=== PATIENT | male | born 1945 | race Caucasian/White ===

== ENCOUNTER 2017-04-13 08:24 | Inpatient (IN) | payer OTHER ==
[~2017-04-13] VITALS: Ht 170.2 cm; Wt 85.7 kg
[~2017-04-13 08:24] MED LIST: ASCO10003 PO; ASPI81TA28 PO; CALC-214 PO; CHOL100010 PO; FINA5TAB PO; FLEC50TA20 PO; OMEG10007 PO; SIMV20TA2 PO; TERA5CAP PO; VITBC PO
--- NOTE | 2017-04-13 09:07 | EMERGENCY ROOM VISIT NOTE ---
History Report prepared by Frandy: Rio Payton Under the Supervision of: Dr. Jose Espinosa M.D. First contact with patient: 08:59 Chief Complaint: IRREGULAR HEARTBEAT Stated Complaint: IRREGULAR HEARTBEAT & PULSE Nursing Triage Summary: "I got up this morning and it felt like I had to have a bowel movement and urinate. I was able to do that then my heart didnt feel like it was beating right." hx of afib and jason parkinson white syndrome. patient denies chest pain or sob at this time. History of Present Illness The patient is a 72 year old male with a history of atrial fibrillation and WPW who presents to the Emergency Room with complaints of a persistent irregular heartbeat around 3 hours ago. Per the nursing staff, the patient felt like he had to have a bowel movement this morning and urinate, and after he did so, he felt that his heart rate was irregular. The patient says that he took 100 mg of his Flecainide instead of his usual 70 mg around 2 and a half hours ago. He states that he knew there was something wrong, and feels weak as well. He notes that he has been having some abdominal pain. The patient denies any chest pain. He states that he takes a baby Aspirin daily. Currently, the patient says that he is still having the abdominal discomfort. Source of History: patient, nursing staff Onset: Around 3 hours ago Position: other (heart) Quality: other (irregular heartbeat) Timing: other (persistent) Associated Symptoms: + abdominal pain, + numbness, No chest pain Note: Associated symptoms: Feels the irregular heartbeat. Review of Systems All systems have been listed, reviewed, and are negative other than those previously mentioned. Please see Additional Medical History Sheet. Past Medical & Surgical Medical Problems: (1) Afib (2) V tach (3) WPW (Wihxp-Qsrxqkeon-Rpzhj syndrome) Family History Family history omitted secondary to patient's advanced age. Social History Smoking Status: Never Smoker Marital Status: Housing Status: lives with family Occupation Status: retired Current/Historical Medications Scheduled Ascorbic Acid (Vitamin C), 1 TAB PO DAILY Aspirin (Aspirin Ec), 81 MG PO DAILY Cholecalciferol (Vitamin D3), 1,000 UNITS PO DAILY Finasteride (Proscar), 5 MG PO DAILY Flecainide (Tambocor), 75 MG PO BID Simvastatin (Zocor), 20 MG PO QPM Terazosin (Hytrin), 5 MG PO HS Vitamin B Complex (Vitamin B Complex), 1 TAB PO DAILY Miscellaneous Medications Fish Oil ([place]-3), 1 CAP PO Allergies Coded Allergies: Penicillins (Verified Allergy, Unknown, `, 01/24/13) Physical Exam Vital Signs Date Time Temp Pulse Resp B/P (MAP) Pulse Ox O2 Delivery O2 Flow Rate FiO2 04/13/17 10:30 95 133/78 04/13/17 09:55 91 18 113/78 04/13/17 09:52 81 04/13/17 09:31 105 18 127/78 04/13/17 09:15 99 Nasal Cannula 2.0 04/13/17 09:13 199 04/13/17 09:03 162 04/13/17 08:49 96 Room Air 04/13/17 08:49 96 Room Air 04/13/17 08:31 36.3 100 20 158/80 97 Room Air Physical Exam GENERAL: Patient awake, alert, oriented x 3. Patient follows commands. Patient does not appear toxic. Patient is adequately hydrated and well- nourished. SKIN: No erythema, pallor, cyanosis or rash HEENT: Normal head, pupils equal, reactive to light and accommodation. Oral cavity and posterior pharynx appear normal. Neck: Without adenopathy, no neck vein distention. Carotids are strong and equal. LUNGS: Clear to auscultation. No wheezes, no rales, no rhonchi. HEART: Irregularly irregular rate. No murmurs. No gallops. No rubs ABDOMEN: No masses, no rebound, no hepatomegaly or splenomegaly. EXTREMITIES: No signs of trauma. No pedal or pretibial edema. No calf or thigh tenderness. NEUROLOGIC: Cranial nerves II-XII within normal limits. No gross motor sensory function deficits. Medical Decision & Procedures ER Provider Diagnostic Interpretation: X ray results are stated below per my interpretation and the radiologist's interpretation. CHEST ONE VIEW PORTABLE CLINICAL HISTORY: v tach cardiac arrhythmia COMPARISON STUDY: No previous studies for comparison. FINDINGS: The bones soft tissues and hemidiaphragms are normal. The cardiomediastinal silhouette is normal. The lungs are clear. The pulmonary vasculature is normal. IMPRESSION: Negative chest. The above report was generated using voice recognition software. It may contain grammatical, syntax or spelling errors. Electronically signed by: Guanako Richardson M.D. 04/13/2017 9:46 AM Dictated Date/Time: 04/13/2017 9:46 AM Laboratory Results 04/13/17 08:44 Red Blood Count 5.01, Mean Corpuscular Volume 92.2, Mean Corpuscular Hemoglobin 32.5, Mean Corpuscular Hemoglobin Concent 35.3, Mean Platelet Volume 9.9, Neutrophils (%) (Auto) 62.5, Lymphocytes (%) (Auto) 23.9, Monocytes (%) (Auto) 8.5, Eosinophils (%) (Auto) 4.1, Basophils (%) (Auto) 0.8, Neutrophils # (Auto) 3.08, Lymphocytes # (Auto) 1.18, Monocytes # (Auto) 0.42, Eosinophils # (Auto) 0.20, Basophils # (Auto) 0.04 04/13/17 08:44 Test 04/13/17 08:44 04/13/17 09:34 04/13/17 10:30 White Blood Count 4.93 K/uL (4.8-10.8) Red Blood Count 5.01 M/uL (4.7-6.1) Hemoglobin 16.3 g/dL (14.0-18.0) Hematocrit 46.2 % (42-52) Mean Corpuscular Volume 92.2 fL (80-100) Mean Corpuscular Hemoglobin 32.5 pg (25-34) Mean Corpuscular Hemoglobin Concent 35.3 g/dl (32-36) Platelet Count 217 K/uL (130-400) Mean Platelet Volume 9.9 fL (7.4-10.4) Neutrophils (%) (Auto) 62.5 % Lymphocytes (%) (Auto) 23.9 % Monocytes (%) (Auto) 8.5 % Eosinophils (%) (Auto) 4.1 % Basophils (%) (Auto) 0.8 % Neutrophils # (Auto) 3.08 K/uL (1.4-6.5) Lymphocytes # (Auto) 1.18 K/uL (1.2-3.4) Monocytes # (Auto) 0.42 K/uL (0.11-0.59) Eosinophils # (Auto) 0.20 K/uL (0-0.5) Basophils # (Auto) 0.04 K/uL (0-0.2) RDW Standard Deviation 41.3 fL (36.4-46.3) RDW Coefficient of Variation 12.2 % (11.5-14.5) Immature Granulocyte % (Auto) 0.2 % Immature Granulocyte # (Auto) 0.01 K/uL (0.00-0.02) Anion Gap 8.0 mmol/L (3-11) Est Creatinine Clear Calc Drug Dose 67.2 ml/min Estimated GFR () 80.9 Estimated GFR (Non- 69.8 BUN/Creatinine Ratio 20.5 (10-20) Calcium Level 9.0 mg/dl (8.5-10.1) Total Bilirubin 0.4 mg/dl (0.2-1) Aspartate Amino Transf (AST/SGOT) 26 U/L (15-37) Alanine Aminotransferase (ALT/SGPT) 31 U/L (12-78) Alkaline Phosphatase 73 U/L (45-117) Creatine Kinase MB 3.0 ng/ml (0.5-3.6) Troponin I < 0.015 ng/ml (0-0.045) Total Protein 7.3 gm/dl (6.4-8.2) Albumin 3.8 gm/dl (3.4-5.0) Globulin 3.5 gm/dl (2.5-4.0) Albumin/Globulin Ratio 1.1 (0.9-2) Chemistry Specimen Hemolysis Prothrombin Time 10.0 SECONDS (9.0-12.0) Prothromb Time International Ratio 1.0 (0.9-1.1) Activated Partial Thromboplast Time 26.1 SECONDS (21.0-31.0) Partial Thromboplastin Ratio 1.0 Urine Color YELLOW Urine Appearance CLEAR (CLEAR) Urine pH 7.5 (4.5-7.5) Urine Specific [place] 1.019 (1.000-1.030) Urine Protein NEG (NEG) Urine Glucose (UA) NEG (NEG) Urine Ketones NEG (NEG) Urine Occult Blood NEG (NEG) Urine Nitrite NEG (NEG) Urine Bilirubin NEG (NEG) Urine Urobilinogen NEG (NEG) Urine Leukocyte Esterase NEG (NEG) Laboratory results as stated above per my review. ECG Indication: palpitations Rate (beats per minute): 100 Rhythm: atrial flutter (with variable block) Findings: PVC (multiple), other (no acute ST changes) Comparison ECG Date: no prior available ED Course 0900: Past medical records reviewed. The patient was evaluated in room A9B. A complete history and physical examination was performed. 0948: I reevaluated the patient and he is feeling about the same. He is definitely in atrial flutter now. 1020: I discussed the patient with Dr. Anna Dejesus cardiology. 1027: Upon reevaluation, the patient is resting. I discussed today's findings with him. He verbalized agreement of the treatment plan. The patient will be evaluated for further treatment. 1030: Discussed the patient's case with Caroline Dejesus. The patient will be evaluated for further management. Medical Decision I considered multiple diagnoses including v-tach, history of WPW, metabolic disorder. The patient is here with atrial flutter with with multiple episodes of V. tach. The patient feels slightly weak but no pain. Multiple labs, EKG and imaging were obtained. Please see above. Troponin is not elevated. The patient is not anemic. I also consulted cardiology and medicine regarding this patient. I spoke with the patient and his . 2 IVs were started. Because the patient remained stable we did not intervene with emergent medications. The patient was reevaluated multiple times. Defibrillator pads were placed on the patient but no shock was administered. Medication Reconcilliation Current Medication List: was personally reviewed by me Blood Pressure Screening Patient's blood pressure: Normal blood pressure Consults Time Called: 1010 Consulting Physician: Dr. Anna Dejesus cardiology Returned Call: 1020 I discussed the patient with Dr. Anna Dejesus cardiology. Additional Consults: Time Called: 1028 Consulted Physician: Caroline Dejesus Returned Call: 1030 Additional Comments: Discussed the patient's case with Caroline Dejesus. The patient will be evaluated for further management. Impression Primary Impression: V-tach Additional Impression: Atrial flutter Critical Care I have personally spent greater than 35 minutes of critical care time in the direct management of this patient. This includes bedside care, interpretation of diagnostic studies, and testing, discussion with consultants, patient, and family members, and other required patient management activities. This 35 minutes is in excess of all separately billable procedures. Scribe Attestation The scribe's documentation has been prepared under my direction and personally reviewed by me in its entirety. I confirm that the note above accurately reflects all work, treatment, procedures, and medical decision making performed by me. Departure Information Dispostion Being Evaluated By Hospitalist Patient Instructions My [facility] Problem Qualifiers Additional Impression: Atrial flutter Atrial flutter type: unspecified Qualified Codes: I48.92 - Unspecified atrial flutter
[2017-04-13 09:25] LABS: BASO % 0.8 %; BASO ABS # 0.04 K/uL (0-0.2); EOS % 4.1 %; HEMATOCRIT 46.2 % (42-52); HEMOGLOBIN 16.3 g/dL (14.0-18.0); IG# 0.01 K/uL (0.00-0.02); LYMPH % 23.9 %; LYMPH ABS # 1.18 K/uL (1.2-3.4); MEAN CELL VOLUME 92.2 fL (80-100); MEAN CORPUSCULAR HEMOGLOBIN 32.5 pg (25-34); MEAN CORPUSCULAR HGB CONC 35.3 g/dl (32-36); MEAN PLATELET VOLUME 9.9 fL (7.4-10.4); MONO % 8.5 %; MONO ABS # 0.42 K/uL (0.11-0.59); NEUT % 62.5 %; NEUT ABS # 3.08 K/uL (1.4-6.5); PLATELET COUNT 217 K/uL (130-400); RED CELL DISTRIBUTION WIDTH CV 12.2 % (11.5-14.5); RED CELL DISTRIBUTION WIDTH SD 41.3 fL (36.4-46.3); WHITE BLOOD COUNT 4.93 K/uL (4.8-10.8)
[2017-04-13] MEDS ORDERED: CHOL1000 PO (09:25)
[2017-04-13 09:37] LABS: ALBUMIN 3.8 gm/dl (3.4-5.0); CREATININE 1.06 mg/dl (0.60-1.40); POTASSIUM 3.6 mmol/L (3.5-5.1)
[2017-04-13 09:39] LABS: TOTAL PROTEIN 7.3 gm/dl (6.4-8.2)
--- NOTE | 2017-04-13 09:48 | DIAGNOSTIC IMAGING REPORT ---
CHEST ONE VIEW PORTABLE CLINICAL HISTORY: v tach cardiac arrhythmia COMPARISON STUDY: No previous studies for comparison. FINDINGS: The bones soft tissues and hemidiaphragms are normal. The cardiomediastinal silhouette is normal. The lungs are clear. The pulmonary vasculature is normal. IMPRESSION: Negative chest. The above report was generated using voice recognition software. It may contain grammatical, syntax or spelling errors. Electronically signed by: Guanako Richardson M.D. 04/13/2017 9:46 AM Dictated Date/Time: 04/13/2017 9:46 AM
[2017-04-13 10:13] LABS: PTT PATIENT 26.1 SECONDS (21.0-31.0)
--- NOTE | 2017-04-13 10:48 | CARDIOLOGY CONSULTATION ---
DATE OF CONSULTATION: 04/13/2017 REFERRING PHYSICIAN: Oleg chruch. REASON FOR CONSULTATION: [id number]-Jfzqw. HISTORY OF PRESENT ILLNESS: This is a 72-year-old male patient who has had a diagnosis of Ulbgs-Mmxisvszu-Tstjr with paroxysmal atrial fibrillation since he was age 45. At that time, he was placed on flecainide and has taken 75 mg twice a day for 25 years. He has been stable on the flecainide obviously for many years. He was not feeling well this morning. He just felt lousy with some fatigue and some pressure in his lower pelvis. According to his , he is not somebody that usually complains. When he called her to come home from work to bring him to the hospital, she was very concerned. After arrival here on the telemetry, he has been having short burst of wide complex tachycardia from 5 to approximately 10 beats, which have been asymptomatic. He has had no recent syncope or presyncope. He denies chest pain or shortness of breath. He has not really had any symptoms of tachycardia for many years. He usually follows with Dr. Richardson through our cardiology office and according to his last note in November, things were going well. Also, he had an echocardiogram this past November that shows normal left and right ventricular systolic function and no valvular pathology. ALLERGIES: PENICILLIN. PAST MEDICAL HISTORY: As outlined above, the patient has a history of atrial arrhythmias with Pyadf-Vwadfvsiu-Yhcgx. He is treated for dyslipidemia. He also has a history of benign prostatic hypertrophy and is followed by urology. SOCIAL HISTORY: He lives with his . He is a never smoker. FAMILY MEDICAL HISTORY: Noncontributory. REVIEW OF SYSTEMS: A 10-point review of systems is otherwise negative. PHYSICAL EXAMINATION: GENERAL: He is alert and oriented, in no acute distress. VITAL SIGNS: Blood pressure is 110/80 and pulse is regular at 90 beats per minute. He is afebrile. HEENT: He is normocephalic. Pupils are equal and reactive to light. Extraocular muscles are intact bilaterally. NECK: The neck veins are flat. Carotids have good upstrokes bilaterally without bruits. Thyroid is nonpalpable. RESPIRATORY: Breath sounds equal bilaterally and clear to auscultation. CARDIOVASCULAR: Heart has a regular rhythm. Normal S1 and S2. No S3 or S4. No cardiac rubs or murmurs. GASTROINTESTINAL: Abdomen is soft and nontender without organomegaly. EXTREMITIES: Free of edema, digit clubbing, or cyanosis. NEUROLOGIC: Grossly intact. SKIN: Warm to touch. LYMPH NODES: Negative to palpation. LABORATORY DATA: EKG shows mostly the narrow complex rhythm with frequent PVCs including couplet. The underlying rhythm is difficult to determine from this EKG. It could be slow flutter versus a sinus rhythm. Hemoglobin is 16.3. Potassium is 3.6 and creatinine is 1.06. IMPRESSION: 1. Generalized fatigue and not feeling well with pelvic pressure, would rule out a urinary tract infection, possibly early flu-like symptoms. 2. Longstanding history of Yiblk-Fajvqhcrz-Hjupg with atrial arrhythmias, successfully treated for over 2 decades with flecainide. 3. Wide complex nonsustained tachycardia on telemetry. RECOMMENDATIONS: The patient should be admitted to the hospital and placed on telemetry. At this time, I would continue his usual dose of flecainide. I will speak with the EP physicians to get their recommendations. He just had a recent echocardiogram through our office and I would not order a repeat study. Further workup per the hospitalist regarding his fatigue, tiredness and pelvic pressure.
[2017-04-13] MEDS ORDERED: ACETAMINOPHEN 325 MG TAB PO PRN (11:45)
[2017-04-13] MEDS ORDERED: ICU PROTOCOL FOR HYPERGLYCEMIA PRN (11:45)
[2017-04-13] MEDS ORDERED: NITROGLYCERIN 0.4 MG SL PER TAB CHARGE SL PRN (11:45)
--- NOTE | 2017-04-13 11:54 | NUR ---
Patient admitted to room 107. afebrile. oriented to person, place, time and situation. radiation monitor applied - patient currently in vtach rate 150s. vital signs stable. asymptomatic. lungs clear on 1L NC. abdomen soft nontender nondistended. at bedside. right a/c 18 gauge IV saline locked. patient chest shaved - pacer pads on. dr. reynoso at bedside. fall agreement signed. code word established. oriented patient and to room and call system. will continue to monitor. see emr for full admission assessment.
[2017-04-13 12:01] VITALS: BP 141/63; PULSE 160; TEMP 36.8; O2SAT 98; Ht 170.2 cm; Wt 85.7 kg
[2017-04-13] MEDS ORDERED: POTASSIUM CHLORIDE 20 MEQ TABCR PO STA (12:08)
[2017-04-13] MEDS ORDERED: HEPARIN IV BOLUS 6,000 UNIT in SYRINGE 0 ML IV ONE (12:45)
[2017-04-13] MEDS: HEPARIN 25,000 UNIT/500ML D5W 500 ML IV PRN (13:10)
--- NOTE | 2017-04-13 13:17 | Critical Care Consultation ---
Critical Care Consultation Date of Consultation: Apr 13, 2017. Attending Physician: Kariem Ramirez DO Reason for Consultation: Wipqu-Eevluwkwo-Cbfrd/ Runs of ventricular tachycardia. History of Present Illness : This is a 72-year-old male patient who has had a diagnosis of Kemep-Gnviwcubj-Tihln with paroxysmal atrial fibrillation since he was age 45. At that time, he was placed on flecainide and has taken 75 mg twice a day for 25 years. He has been stable on the flecainide obviously for many years. He was not feeling well this morning. He just felt lousy with some fatigue and some pressure in his lower pelvis. According to his , he is not somebody that usually complains. When he called her to come home from work to bring him to the hospital, she was very concerned. After arrival here on the telemetry, he has been having short burst of wide complex tachycardia from 5 to approximately 10 beats, which have been asymptomatic. He has had no recent syncope or presyncope. He denies chest pain or shortness of breath. He has not really had any symptoms of tachycardia for many years. He usually follows with Dr. Richardson through cardiology office and according to his last note in November, things were going well. Also, he had an echocardiogram this past November that shows normal left and right ventricular systolic function and no valvular pathology.the patient was transferred here to be evaluated further by EP study and treatment accordingly. In the mean time, if at all he goes in to V Teck and unstable, the patient will be shocked. Also will be started on Procainamide. Currently he remains very stable and denies any distress such as headache or dizzyness or chest pain or palpitations or abdominal pain or N/Vomitting. Past Medical/Surgical History The patient has a history of atrial arrhythmias with Zchca-Jditfycky-Hybbp. He is treated for dyslipidemia. He also has a history of benign prostatic hypertrophy and is followed by urology. Social History Smoking Status: Never Smoker Alcohol Use: none Drug Use: none Marital Status: Housing Status: lives with family Occupation Status: retired Allergies Coded Allergies: Penicillins (Verified Allergy, Unknown, `, 01/24/13) Home Medications Scheduled Ascorbic Acid (Vitamin C), 1 TAB PO DAILY Aspirin (Aspirin Ec), 81 MG PO DAILY Cholecalciferol (Vitamin D3), 1,000 UNITS PO DAILY Finasteride (Proscar), 5 MG PO DAILY Flecainide (Tambocor), 75 MG PO BID Simvastatin (Zocor), 20 MG PO QPM Terazosin (Hytrin), 5 MG PO HS Vitamin B Complex (Vitamin B Complex), 1 TAB PO DAILY Miscellaneous Medications Fish Oil ([place]-3), 1 CAP PO Current Inpatient Medications Current Inpatient Medications Medications (Trade) Dose Ordered Sig/Koki Route Start Time Stop Time Status Last Admin Dose Admin Acetaminophen (Tylenol Tab) 650 mg Q4H PRN PO 04/13/17 11:45 05/13/17 11:44 Nitroglycerin (Nitrostat Tab) 0.4 mg UD PRN SL 04/13/17 11:45 05/13/17 11:44 Miscellaneous Information (Icu Protocol For Hyperglycemia) 1 ea PRN PRN N/A 04/13/17 11:45 04/15/17 11:44 Heparin Sodium/ Dextrose 1 ea Q10M N/A 04/13/17 12:14 05/13/17 12:13 Review of Systems 12 points review of system is negative except in History and also he is weak and fatigued. Otherwise no chest pain or palpitations or SOB or cough or abdominal pain or N/Vomitting or headache or dizziness. Physical Exam Date Time Temp Pulse Resp B/P (MAP) Pulse Ox O2 Delivery O2 Flow Rate FiO2 04/13/17 12:01 36.8 160 18 141/63 98 Nasal Cannula 1.0 04/13/17 11:07 91 18 122/72 04/13/17 10:30 95 133/78 04/13/17 09:55 91 18 113/78 04/13/17 09:52 81 04/13/17 09:31 105 18 127/78 04/13/17 09:15 99 Nasal Cannula 2.0 04/13/17 09:13 199 04/13/17 09:03 162 04/13/17 08:49 96 Room Air 04/13/17 08:49 96 Room Air 04/13/17 08:31 36.3 100 20 158/80 97 Room Air General Appearance: well-appearing, no apparent distress Head: normocephalic Eyes: PERRLA, sclerae normal, conjunctivae normal ENT: normal ear exam, normal mouth exam, normal throat exam Neck: normal range of motion, no tenderness, trachea midline, no stridor, supple, no thyromegaly, no lymphadenopathy Respiratory: breath sounds normal, clear to auscultation, clear to percussion, no respiratory distress, no tenderness Cardiovasular: irregular rate, abnormal rhythm, abnormal pulses Abdomen: non tender, normal bowel sounds, no rebound, no masses, no guarding, no organomegaly Genitourinary - Male: other (not performed.) Back: normal inspection, normal range of motion Upper Extremities: no edema, normal ROM Lower Extremities: no edema, normal ROM Pulses: radial (R) (2+), radial (L) (2+), dorsalis pedis (R) (2+), dorsalis pedis (L) (2+) Neuro: alert, oriented x 3, normal motor exam, normal sensation Psychiatric: normal affect, no suicidal ideation Laboratory Results Last 24 Hours Test 04/13/17 08:44 04/13/17 09:34 04/13/17 11:23 04/13/17 12:23 White Blood Count 4.93 K/uL Red Blood Count 5.01 M/uL Hemoglobin 16.3 g/dL Hematocrit 46.2 % Mean Corpuscular Volume 92.2 fL Mean Corpuscular Hemoglobin 32.5 pg Mean Corpuscular Hemoglobin Concent 35.3 g/dl Platelet Count 217 K/uL Mean Platelet Volume 9.9 fL Neutrophils (%) (Auto) 62.5 % Lymphocytes (%) (Auto) 23.9 % Monocytes (%) (Auto) 8.5 % Eosinophils (%) (Auto) 4.1 % Basophils (%) (Auto) 0.8 % Neutrophils # (Auto) 3.08 K/uL Lymphocytes # (Auto) 1.18 K/uL Monocytes # (Auto) 0.42 K/uL Eosinophils # (Auto) 0.20 K/uL Basophils # (Auto) 0.04 K/uL RDW Standard Deviation 41.3 fL RDW Coefficient of Variation 12.2 % Immature Granulocyte % (Auto) 0.2 % Immature Granulocyte # (Auto) 0.01 K/uL Sodium Level 142 mmol/L Potassium Level 3.6 mmol/L Chloride Level 108 mmol/L Carbon Dioxide Level 26 mmol/L Anion Gap 8.0 mmol/L Blood Urea Nitrogen 22 mg/dl Creatinine 1.06 mg/dl Est Creatinine Clear Calc Drug Dose 67.2 ml/min Estimated GFR () 80.9 Estimated GFR (Non- 69.8 BUN/Creatinine Ratio 20.5 Random Glucose 119 mg/dl Calcium Level 9.0 mg/dl Total Bilirubin 0.4 mg/dl Aspartate Amino Transf (AST/SGOT) 26 U/L Alanine Aminotransferase (ALT/SGPT) 31 U/L Alkaline Phosphatase 73 U/L Creatine Kinase MB 3.0 ng/ml Troponin I < 0.015 ng/ml Total Protein 7.3 gm/dl Albumin 3.8 gm/dl Globulin 3.5 gm/dl Albumin/Globulin Ratio 1.1 Chemistry Specimen Hemolysis Prothrombin Time 10.0 SECONDS Prothromb Time International Ratio 1.0 Activated Partial Thromboplast Time 26.1 SECONDS Partial Thromboplastin Ratio 1.0 Creatine Kinase MB Ratio Diagnostic Results CXR: FINDINGS: The bones soft tissues and hemidiaphragms are normal. The cardiomediastinal silhouette is normal. The lungs are clear. The pulmonary vasculature is normal. IMPRESSION: Negative chest. Assessment & Plan Longstanding history of Ptumd-Rsmfknbhy-Yhkol with atrial arrhythmias, successfully treated for over 2 decades with flecainide. Wide complex nonsustained tachycardia on telemetry. NEUROLOGY: Overall remains stable and there are no neurological issues at this time. CARDIOLOGY: Chao Parkinson-White Syndrome with Atrial Arrhythmias. The patient has been on Flecainide for almost 20 years and it seems it has been helping him. Now while on Flecainide, he is having symptoms, he will be evaluated by the EP study and will be treated accordingly. In the mean time if he has persistent vV.Tech, he will be starred on Procainamide drip. During the treatment phage, if at all, he is unstable, he will be shocked. The EP study will also evaluate the patient. Wide complex Non sustained ventricular Tachycardia. The patient is hemodynamically stable. PULMONARY: The patient do not have any issues related to pulmonary. GI: he has been stable and functioning very well from the GI point of view, UROLOGY: The patient has pelvic pressors like symptoms. Will get urine for U/A and treat him with antibiotics, if he is positive for UTI. RENAL: No this time, ID: As mentioned in Urology. HEMATOLOGY/ONCOLOGY/ENDOCRINE: No issue at this time. DVT Prophylaxis. SCD in place. The patient is full code. D/W the family and also other medical provider. Spent greater than 55 minutes of critical care time, exclusively for the clinical evaluation and treatment of the patient and discussion with family and medical provider, review all the previous records and also review and interpret the lab results and CXR . DR. [facility].
--- NOTE | 2017-04-13 14:43 | History and Physical ---
History & Physical Date & Time of Service: Apr 13, 2017 ~ 11:00 Chief Complaint: Not Feeling Well Primary Care Physician: Dr. Diaz History of Present Illness 72 year old male who presents to the ED with a chief complaint of generally not feeling well. Patient reports his symptoms started this morning when he woke up. He reports he had a feeling of fullness in his lower abdomen. He was able to urinate and have a bowel movement and those symptoms somewhat improved. He reports he still continued to feel "not quite right." He took his blood pressure and reports his machine had alerted him that his heart rate was irregular. However he does have history of a. fib. Patient denies chest pain, palpitations, and shortness of breath. No lightheadedness, dizziness, diaphoresis, or syncopal events. He denies fever and chills. No abdominal pain, nausea, vomiting, or diarrhea. In the ED, patient was found to be having short bursts of wide complex tachycardia with underlying a fib. Patient remained asymptomatic and hemodynamically stable in the ED. He was evaluated urgently by Dr. Castillo in the ED. Past Medical/Surgical History Medical Problems: (1) Afib Status: Chronic (2) BPH (benign prostatic hyperplasia) Status: Chronic (3) Dyslipidemia Status: Chronic (4) WPW (Yxloy-Mepcqskon-Vhikv syndrome) Status: Chronic Surgical Problems: (1) H/O inguinal hernia repair Status: Chronic (2) S/P excision of lipoma Status: Chronic Family History FH: cancer MOTHER Social History Smoking Status: Never Smoker Alcohol Use: none Immunizations History of Tetanus Vaccine?: Yes Tetanus Immunization Date: Oct 17, 2007 History of Pneumococcal: Yes Pneumococcal Date: Nov 30, 2015 Multi-Drug Resistant Organisms History of MDRO: No Allergies Coded Allergies: Penicillins (Verified Allergy, Unknown, `, 01/24/13) Home Medications Scheduled Ascorbic Acid (Vitamin C), 1 TAB PO DAILY Aspirin (Aspirin Ec), 81 MG PO DAILY Cholecalciferol (Vitamin D3), 1,000 UNITS PO DAILY Finasteride (Proscar), 5 MG PO DAILY Flecainide (Tambocor), 75 MG PO BID Simvastatin (Zocor), 20 MG PO QPM Terazosin (Hytrin), 5 MG PO HS Vitamin B Complex (Vitamin B Complex), 1 TAB PO DAILY Review of Systems ROS per HPI, all other systems reviewed and negative Physical Exam Vital Signs Date Time Temp Pulse Resp B/P (MAP) Pulse Ox O2 Delivery O2 Flow Rate FiO2 04/13/17 12:01 36.8 160 18 141/63 98 Nasal Cannula 1.0 04/13/17 11:07 91 18 122/72 04/13/17 10:30 95 133/78 04/13/17 09:55 91 18 113/78 04/13/17 09:52 81 04/13/17 09:31 105 18 127/78 04/13/17 09:15 99 Nasal Cannula 2.0 04/13/17 09:13 199 04/13/17 09:03 162 04/13/17 08:49 96 Room Air 04/13/17 08:49 96 Room Air 04/13/17 08:31 36.3 100 20 158/80 97 Room Air General Appearance: WD/WN, no apparent distress Head: normocephalic, atraumatic Eyes: normal inspection, EOMI, sclerae normal ENT: hearing grossly normal, + pertinent finding (mucous membranes moist) Neck: supple, no JVD, no carotid bruits, trachea midline Respiratory/Chest: lungs clear, normal breath sounds, no respiratory distress Cardiovascular: no edema, normal peripheral pulses, + tachycardia, + irregularly irregular Abdomen/GI: normal bowel sounds, non tender, soft, no organomegaly Extremities/Musculoskelatal: normal inspection, no calf tenderness, normal capillary refill Neurologic/Psych: no motor/sensory deficits, alert, normal mood/affect, oriented x 3 Skin: normal color, warm/dry Diagnostics Laboratory Results Results Past 24 Hours Test 04/13/17 08:44 04/13/17 09:34 04/13/17 10:30 04/13/17 11:23 Range/Units White Blood Count 4.93 4.8-10.8 K/uL Red Blood Count 5.01 4.7-6.1 M/uL Hemoglobin 16.3 14.0-18.0 g/dL Hematocrit 46.2 42-52 % Mean Corpuscular Volume 92.2 80-100 fL Mean Corpuscular Hemoglobin 32.5 25-34 pg Mean Corpuscular Hemoglobin Concent 35.3 32-36 g/dl Platelet Count 217 130-400 K/uL Mean Platelet Volume 9.9 7.4-10.4 fL Neutrophils (%) (Auto) 62.5 % Lymphocytes (%) (Auto) 23.9 % Monocytes (%) (Auto) 8.5 % Eosinophils (%) (Auto) 4.1 % Basophils (%) (Auto) 0.8 % Neutrophils # (Auto) 3.08 1.4-6.5 K/uL Lymphocytes # (Auto) 1.18 1.2-3.4 K/uL Monocytes # (Auto) 0.42 0.11-0.59 K/uL Eosinophils # (Auto) 0.20 0-0.5 K/uL Basophils # (Auto) 0.04 0-0.2 K/uL RDW Standard Deviation 41.3 36.4-46.3 fL RDW Coefficient of Variation 12.2 11.5-14.5 % Immature Granulocyte % (Auto) 0.2 % Immature Granulocyte # (Auto) 0.01 0.00-0.02 K/uL Sodium Level 142 136-145 mmol/L Potassium Level 3.6 3.5-5.1 mmol/L Chloride Level 108 98-107 mmol/L Carbon Dioxide Level 26 21-32 mmol/L Anion Gap 8.0 3-11 mmol/L Blood Urea Nitrogen 22 7-18 mg/dl Creatinine 1.06 0.60-1.40 mg/dl Est Creatinine Clear Calc Drug Dose 67.2 ml/min Estimated GFR () 80.9 Estimated GFR (Non- 69.8 BUN/Creatinine Ratio 20.5 10-20 Random Glucose 119 70-99 mg/dl Calcium Level 9.0 8.5-10.1 mg/dl Total Bilirubin 0.4 0.2-1 mg/dl Aspartate Amino Transf (AST/SGOT) 26 15-37 U/L Alanine Aminotransferase (ALT/SGPT) 31 12-78 U/L Alkaline Phosphatase 73 45-117 U/L Creatine Kinase MB 3.0 0.5-3.6 ng/ml Troponin I < 0.015 0-0.045 ng/ml Total Protein 7.3 6.4-8.2 gm/dl Albumin 3.8 3.4-5.0 gm/dl Globulin 3.5 2.5-4.0 gm/dl Albumin/Globulin Ratio 1.1 0.9-2 Chemistry Specimen Hemolysis Prothrombin Time 10.0 9.0-12.0 SECONDS Prothromb Time International Ratio 1.0 0.9-1.1 Activated Partial Thromboplast Time 26.1 21.0-31.0 SECONDS Partial Thromboplastin Ratio 1.0 Urine Color YELLOW Urine Appearance CLEAR CLEAR Urine pH 7.5 4.5-7.5 Urine Specific [place] 1.019 1.000-1.030 Urine Protein NEG NEG Urine Glucose (UA) NEG NEG Urine Ketones NEG NEG Urine Occult Blood NEG NEG Urine Nitrite NEG NEG Urine Bilirubin NEG NEG Urine Urobilinogen NEG NEG Urine Leukocyte Esterase NEG NEG Creatine Kinase MB Ratio 0-3.0 Test 04/13/17 12:23 Range/Units Magnesium Level 2.1 1.8-2.4 mg/dl Microbiology Results 04/13/17 MRSA DNA Surveillance Screen, Received Pending 04/13/17 Urine Culture, Received Pending Diagnostic Radiology CXR IMPRESSION: Negative chest. Impression Assessment and Plan NONSUSTAINED WIDE COMPLEX TACHYCARDIA HX WPW, ATRIAL FIBRILLATION - admit to ICU - patient presenting with reports of generally not feeling well; in the ED, was found to be having frequent bursts of wide complex tachycardia with underlying atrial fibrillation - currently asymptomatic, hemodynamically stable - patient with long standing history of WPW and a. fib previously managed on flecainide for several years - K+ 3.6 - will replace, Mg+ WNL - initial troponin negative, will continue to cycle cardiac enzymes - had a recent outpatient echo - defer repeating to cardiology - case discussed with Dr. Castillo - will hold flecainide for now and if arrhythmias is sustains or if patient becomes symptomatic, will start procainamide - patient to be evaluated by Dr. Calhoun this afternoon - patient also with history of a. fib however not anticoagulated, likely due to low CHADS2 score (0) - while hospitalized, will start IV heparin for now BPH - U/A does not suggest infection - continue terazosin and finasteride DYSLIPIDEMIA - continue statin DVT PROPHYLAXIS - on IV heparin DISPO - In my clinical judgment this beneficiary meets acute admission criteria, established by [facility], that includes being hospitalized through two midnights. Attending Addendum: The patient was seen and examined Has history of WPW syndrome ,has been under reasonably controlled with Flecainide Admitted with frequent short burst of VT of 5 to ~ 10 runs Fairly asymptomatic Admitted for EP evaluation and medication adjustment O/E Stable in ICU Chest-clear to auscultate bilaterally Heart-irregular Abdomen-benign,no masses,bowel sound present Extremities-negative fo any edema COSTUME MISTRESS-[id number] No focal neuro deficit Labs and EKG noted Agree with the assessment and plan. DR Kasia Elliott Advanced Directives Existing Living Will: No Existing Power of Cabinet Finisher: No VTE Prophylaxis VTE Risk Assessment Done? Y/N: Yes Risk Level: Moderate
[2017-04-13] MEDS ORDERED: DRIP IV STA (15:48)
[2017-04-13] MEDS ORDERED: [UNRECOGNIZED DRUG - OTHER] IV STA (15:48)
[2017-04-13 16:00] VITALS: BP 107/65; PULSE 88; TEMP 36.9; O2SAT 97
--- NOTE | 2017-04-13 16:00 | NUR ---
A/ID: RESUMED CARE OF PT. PT IS AWAKE, ALERT AND ORIENTED. DENIES PAIN. IV INTACT - HEPARIN INFUSING AT 27CC/HR PER ORDER. VOIDING IN URINAL - AFLUTTER ON MONITOR WITH ALMOST CONTINUOUS RUNS VT WHICH HE REMAINS ASYMPTOMATIC. DR. BRAY AT BEDSIDE AND AWARE. CALL CORRAL WITHIN REACH, FAMILY AT BEDSIDE.
--- NOTE | 2017-04-13 16:04 | CARDIOLOGY PROGRESS NOTE ---
DATE: 04/13/2017 DATE: 04/13/2017 After admission to the ICU The patient is having almost continuous wide complex tachycardia with rates of 150-180 beats per minute. Although the patient is remaining stable at this time I think it is best that we start him on procainamide as suggested by the EP service. His flecainide has been placed on hold. Will have further recommendations following the above.
[2017-04-13] MEDS ORDERED: DEXTROSE 5% IV ONE (16:15)
[2017-04-13] MEDS ORDERED: PROCAINAMIDE HCL IV ONE (16:15)
[2017-04-13] MEDS: PROCAINAMIDE HCL IV SCH (16:17)
[2017-04-13] MEDS: DEXTROSE 5% IV SCH (16:17)
--- NOTE | 2017-04-13 17:15 | NUR ---
PROCAINAMIDE DRIP CONTINUES TO INFUSE. PT HAS MULTIPLE RUNS OF WIDE COMPLEX TACHYCARDIA ON MONITOR - DR. BRAY WAS PAGED AND MADE AWARE. NO NEW ORDERS. CONTINUE TO MONITOR.
[2017-04-13 18:00] VITALS: BP 125/80; PULSE 82; O2SAT 96
--- NOTE | 2017-04-13 18:00 | NUR ---
PT RESTING QUIETLY IN BED. DENIES COMPLAINTS. IV INTACT - HEPARIN AND PROCAINAMIDE INFUSING WITHOUT DIFFICULTY.
[2017-04-13 18:39] LABS: CKMB 2.1 ng/ml (0.5-3.6)
[2017-04-13 18:50] LABS: PTT PATIENT 75.5 SECONDS (21.0-31.0)
--- NOTE | 2017-04-13 19:00 | NUR ---
LAB CALLED WITH A PTT 75.5 - HEPARIN INFUSING AT 1350UNITS/HR (27CC/HR), PER PROTOCOL, DECREASED DRIP BY 100UNITS/HR - HEPARIN IS CURRENTLY INFUSING AT 1250UNITS/HR (25CC/HR) WILL RECHECK PTT IN 6 HOURS.
[2017-04-13 20:00] VITALS: BP 151/60; PULSE 73; TEMP 36.8; O2SAT 95; O2SAT 96
--- NOTE | 2017-04-13 20:00 | NUR ---
A: PT ALERT AND ORIENTED. DENIES PAIN. IV INTACT - HEPARIN AT 25CC/HR AND PROCAINAMIDE AT 15ML/HR PER ORDER. PT HAD 17 BEAT RUN VT - LINDA FOFANA PA-C AWARE. VITAL SIGNS OTHERWISE STABLE. VOIDING IN URINAL. CALL CORRAL WITHIN REACH. 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 LINDA FOFANA PA-C AWARE.
[2017-04-13] MEDS ORDERED: SIMVASTATIN 20 MG TAB PO SCH (21:00)
[2017-04-13 22:00] VITALS: BP 113/63; PULSE 61; O2SAT 95
--- NOTE | 2017-04-13 22:00 | NUR ---
A: PT ASLEEP AT THIS TIME. VITAL SIGNS STABLE. IV INTACT - HEPARIN AND PROCAINAMIDE INFUSING WITHOUT DIFFICULTY. CALL CORRAL WITHIN REACH.
[2017-04-13 23:44] LABS: CKMB 1.7 ng/ml (0.5-3.6)
[2017-04-13 23:59] VITALS: O2SAT 95
[2017-04-14] VITALS (8 sets, daily range): BP systolic 101–145; BP diastolic 59–99; PULSE 65–124; TEMP 36.3–36.8; O2SAT 95–98
--- NOTE | 2017-04-14 | NUR ---
A: Assessment completed. See EMR for full assessment. Patient resting in bed. No complaints of chest pain or shortness of breath noted. Lungs clear on RA. O2 sat 96%. A-Fib/A-Flutter on monitor. HR 90-100's. VSS. Heparin at 25 ml/hr (1250 units/hr). Procainamide drip infusing at 15 ml/hr via left AC #18 gauge. Portable at monitor at bedside. Pacer pads in place. Call cornelius within reach.
[2017-04-14 01:45] LABS: PTT PATIENT 61.5 SECONDS (21.0-31.0)
--- NOTE | 2017-04-14 02:00 | NUR ---
A: Patient asleep. A-Fib/A-Flutter on monitor. VSS. PTT 61.5, no change in Heparin rate. Procainamide continues to infuse. Call cornelius within reach.
--- NOTE | 2017-04-14 03:15 | NUR ---
Patient displaying V-Tach on monitor. Patient AAOX4. Patient reports having a feeling of uneasiness. Bernabe Stoll PA-C at bedside. VSS. Will continue to monitor.
--- NOTE | 2017-04-14 04:00 | NUR ---
A: Assessment completed. Patient resting in bed. No complaints voiced. Remains A-Fib/a-Flutter on monitor. HR 100's. VSS. O2 sat 95% on RA. Heparin and Procainamide continue to infuse. Portable monitor at bedside and pacer pads in place. Call cornelius within reach.
[2017-04-14 05:54] LABS: HEMATOCRIT 44.2 % (42-52); HEMOGLOBIN 15.7 g/dL (14.0-18.0); MEAN CELL VOLUME 91.9 fL (80-100); MEAN CORPUSCULAR HEMOGLOBIN 32.6 pg (25-34); MEAN CORPUSCULAR HGB CONC 35.5 g/dl (32-36); MEAN PLATELET VOLUME 9.2 fL (7.4-10.4); PLATELET COUNT 190 K/uL (130-400); RED CELL DISTRIBUTION WIDTH CV 12.3 % (11.5-14.5); RED CELL DISTRIBUTION WIDTH SD 41.4 fL (36.4-46.3); WHITE BLOOD COUNT 6.38 K/uL (4.8-10.8)
--- NOTE | 2017-04-14 06:00 | NUR ---
A: Patient resting in bed. Denies pain or shortness of breath. VSS. A-Flutter on monitor. Amiodarone and Procainamide infusing without difficulty. Call cornelius within reach.
[2017-04-14] MEDS: PROCAINAMIDE HCL IV SCH (06:21)
[2017-04-14] MEDS: DEXTROSE 5% IV SCH (06:21)
[2017-04-14] MEDS: HEPARIN 25,000 UNIT/500ML D5W 500 ML IV PRN (06:22)
[2017-04-14 06:33] LABS: CALCIUM 8.5 mg/dl (8.5-10.1); CREATININE 0.88 mg/dl (0.60-1.40); POTASSIUM 3.8 mmol/L (3.5-5.1)
--- NOTE | 2017-04-14 08:15 | NUR ---
A: Patient awake, alert and oriented. A-flutter, current heart rate 124/minute. Denies chest pain/discomfort. Denies sob. Remains NPO at present time. Voiding large amounts of concentrated yellow urine. Procainamide infusion in place at 1 mg/min. Heparin infusion in place at 1250 units/hour. V-fib pads remain intact at patient's chest. Call cornelius within reach, demonstrates ability to ring for assistance as needed.
--- NOTE | 2017-04-14 08:54 | NUR ---
A: Sustained V tach noted via telemetry. Dr. Castillo called to bedside.
[2017-04-14] MEDS ORDERED: FINASTERIDE 5 MG TAB PO SCH (09:00)
[2017-04-14] MEDS ORDERED: ASPIRIN 81 MG ECTAB PO SCH (09:00)
[2017-04-14] MEDS ORDERED: ASCORBIC ACID 500 MG TAB PO SCH (09:00)
[2017-04-14] MEDS ORDERED: CHOLECALCIFEROL 1000 INTER.UNIT TAB PO SCH (09:00)
[2017-04-14] MEDS ORDERED: VITAMIN B COMPLEX TAB PO SCH (09:00)
--- NOTE | 2017-04-14 09:00 | NUR ---
A: Current heart rate ranges from 200-220/minute, V-tach. Patient remains awake, alert, continues to deny discomfort.
[2017-04-14] MEDS ORDERED: AMIODARONE 150MG / 100ML D5W ONE (09:27)
[2017-04-14] MEDS ORDERED: AMIODARONE 360MG / 200ML D5W ONE (09:27)
[2017-04-14] MEDS ORDERED: AMIODARONE IV BOLUS / DRIP IV STA (09:29)
[2017-04-14] MEDS ORDERED: AMIODARONE / D5W 200 ML IV SCH ×2 (09:35→15:35)
--- NOTE | 2017-04-14 09:35 | NUR ---
A: Amiodarone bolus given, maintenance Amiodarone infusion in place.
--- NOTE | 2017-04-14 09:54 | NUR ---
A: Sinus rhythm via monitor, current heart rate 74/minute.
--- NOTE | 2017-04-14 10:24 | PROGRESS NOTE ---
DATE: 04/14/2017 FOLLOWUP VISIT SUBJECTIVE: This morning, the patient went into wide complex tachycardia with rates over 200 beats per minute. The patient would break and it appears that he has atrial flutter waves, so I believe that he is conducting the atrial flutter down his bypass tract. We initially increased his procainamide. I contacted Dr. Renny Gomez at [facility] on the EP service who recommended that we start amiodarone. After starting amiodarone in addition to procainamide, the patient broke to a normal sinus rhythm with a narrow QRS complex. He is now clinically stable. We will plan on transferring him to [facility] for further EP evaluation. OBJECTIVE: VITAL SIGNS: Blood pressure is 135/77, pulse is regular at 73 beats per minute. GENERAL: He is afebrile. HEENT: He is normocephalic. Pupils are equal and reactive to light. Extraocular muscles are intact bilaterally. NECK: The neck veins are flat. Carotids have good upstrokes bilaterally without bruits. Thyroid is nonpalpable. RESPIRATORY: Breath sounds equal bilaterally and clear to auscultation. CARDIOVASCULAR: Heart has a regular rhythm. Normal S1, S2. No S3, S4. No cardiac rubs or murmurs. GASTROINTESTINAL: Abdomen is soft, nontender without organomegaly. EXTREMITIES: Free of edema, digit clubbing, or cyanosis. NEUROLOGIC: Grossly intact. SKIN: Warm to touch. LYMPH NODES: Negative to palpation. LABORATORY DATA: Hemoglobin is 15.7, WBC count is 6.38, potassium is 3.8, creatinine is 0.88. IMPRESSION: Pekeq-Zcabvczil-Uexkk or a concealed bypass tract with atrial flutter on wide complex tachycardia. RECOMMENDATIONS: As outlined above, the patient will be transferred to [facility] for further care. He is currently stable enough to be transferred. We will continue the procainamide and amiodarone on transfer. I spent approximately half hour of critical care time on this patient.
--- NOTE | 2017-04-14 10:30 | NUR ---
A: Verbal nursing report given via telephone to receiving nurse.
--- NOTE | 2017-04-14 10:54 | Critical Care Progress Note ---
Critical Care Progress Note Date of Service Apr 14, 2017. ICU Day ICU Day Number: [address] Barger Subjective 72 year old male was admitted with WPW syndrome for almost 25 years and he has been on Flecainide since then. The patient had an episode of being dizzy and not feeling well. The patient was brought in to ICU and was started on Procainamide with some improvement and waitng for EP study to evaluate further. In the mean time the patient went in to [employer] and at times he was in atrial flutter. Received a bolus of Amiodarone and was started on an amiodarone drip at 1 mg and currently he is in sinus and is hemodynamically stable. Also the patient is alert, awake and is oriented X3. Family is by the bed side. He denies any dizziness or SOB or chest pain, abdominal pain or N/Vomiting. Cardiology is by the bed side and currently patient is in a process of being transferred to [facility]. Objective General Appearance: well-appearing, no apparent distress Head: normocephalic Eyes: PERRLA, sclerae normal, conjunctivae normal ENT: normal ear exam, normal mouth exam, normal throat exam Neck: normal range of motion, no tenderness, trachea midline, no stridor, supple, no thyromegaly, no lymphadenopathy Respiratory: breath sounds normal, clear to auscultation, clear to percussion, no respiratory distress, no tenderness Cardiovascular: irregular rate, abnormal rhythm, abnormal pulses Abdomen: non tender, normal bowel sounds, no rebound, no masses, no guarding, no organomegaly Genitourinary - Male: other (not performed.) Back: normal inspection, normal range of motion Upper Extremities: no edema, normal ROM Lower Extremities: no edema, normal ROM Pulses: radial (R) (2+), radial (L) (2+), dorsalis pedis (R) (2+), dorsalis pedis (L) (2+) Neuro: alert, oriented x 3, normal motor exam, normal sensation Psychiatric: normal affect, no suicidal ideation Assessment & Plan Longstanding history of Birbu-Aokswlhox-Vgylh with atrial arrhythmias, Wide complex nonsustained tachycardia on telemetry. On Procainamide and Amiodarone and he is converted to sinus. Not in any acute distress. NEUROLOGY: Overall remains stable and there are no neurological issues at this time. CARDIOLOGY: Chao Parkinson-White Syndrome with Atrial Arrhythmias. The patient has been on Flecainide for almost 20 years and it seems it has been helping him. Now while on Flecainide, he is having symptoms. The patient was in [facility] while on Procainamide and once the Amiodarone was addedd, he converted to sinus. Will be transferred to [facility] for further evaluation and treatment. Wide complex Non sustained ventricular Tachycardia. The patient is hemodynamically stable and remains on Procainamide and Amiodarone. PULMONARY: The patient do not have any issues related to pulmonary. GI: he has been stable and functioning very well from the GI point of view, UROLOGY: Overall remains stable and no issues at this time. RENAL: No issues at this time, ID: As mentioned in Urology. HEMATOLOGY/ONCOLOGY/ENDOCRINE: No issue at this time. DVT Prophylaxis. SCD in place. The patient is full code. D/W the family and also other medical provider. Spent greater than 35 minutes of critical care time, exclusively for the clinical evaluation and treatment of the patient and discussion with family and medical provider, review all the previous records and also review and interpret the lab results and CXR . Consults & Procedures Consultants: Cardiology: Fabian Santos Procedures: None. Data Medications: Current Inpatient Medications Medications (Trade) Dose Ordered Sig/Koki Route Start Time Stop Time Status Last Admin Dose Admin Acetaminophen (Tylenol Tab) 650 mg Q4H PRN PO 04/13/17 11:45 05/13/17 11:44 Nitroglycerin (Nitrostat Tab) 0.4 mg UD PRN SL 04/13/17 11:45 05/13/17 11:44 Miscellaneous Information (Icu Protocol For Hyperglycemia) 1 ea PRN PRN N/A 04/13/17 11:45 04/15/17 11:44 Heparin Sodium/ Dextrose 500 ml @ 25 mls/hr Q20H PRN IV 04/13/17 12:45 05/13/17 12:44 04/14/17 06:22 25 MLS/HR Aspirin (Ecotrin Tab) 81 mg DAILY PO 04/14/17 09:00 05/14/17 08:59 04/14/17 08:16 81 MG Cholecalciferol (Vitamin D Tab) 1,000 inter.unit DAILY PO 04/14/17 09:00 1/28/18 08:59 04/14/17 08:17 1,000 INTER.UNIT Finasteride (Proscar Tab) 5 mg DAILY PO 04/14/17 09:00 05/14/17 08:59 04/14/17 08:17 5 MG Simvastatin (Zocor Tab) 20 mg QPM PO 04/13/17 21:00 05/13/17 20:59 04/13/17 19:56 20 MG Terazosin HCl (Hytrin Cap) 5 mg HS PO 04/13/17 21:00 05/13/17 20:59 04/13/17 19:56 5 MG Vitamin B Complex (Vitamin B Complex) 1 tab DAILY PO 04/14/17 09:00 05/14/17 08:59 04/14/17 08:17 1 TAB Ascorbic Acid (Vitamin C Tab) 500 mg DAILY PO 04/14/17 09:00 05/14/17 08:59 04/14/17 08:17 500 MG Procainamide HCl 1000 mg/Dextrose 252 ml @ 15 mls/hr [id number] IV 04/13/17 16:30 05/13/17 16:29 04/14/17 06:21 15 MLS/HR Amiodarone HCL/ Dextrose 200 ml @ 16.7 mls/hr [id number] IV 04/14/17 15:35 05/14/17 15:34 Amiodarone HCL/ Dextrose 200 ml @ 33.3 mls/hr Q6H1M IV 04/14/17 09:35 04/14/17 15:35 Future hold Vital Signs: Date Time Temp Pulse Resp B/P (MAP) Pulse Ox O2 Delivery O2 Flow Rate FiO2 04/14/17 06:00 120 18 135/77 (96) 95 Room Air 04/14/17 04:00 95 Room Air 04/14/17 04:00 36.3 65 13 122/74 (90) 95 Room Air 04/14/17 03:17 122 14 145/99 (114) 96 Room Air 04/14/17 02:00 69 14 128/79 (95) 96 Room Air 04/14/17 00:01 36.3 82 14 132/73 (92) 96 Room Air 04/13/17 23:59 95 Room Air 04/13/17 22:00 61 12 113/63 (80) 95 Room Air 04/13/17 20:00 36.8 73 16 151/60 (90) 96 Room Air 04/13/17 20:00 95 Room Air 04/13/17 18:00 82 15 125/80 (95) 96 Nasal Cannula 2.0 04/13/17 16:00 36.9 88 16 107/65 (79) 97 Nasal Cannula 2.0 04/13/17 16:00 97 Nasal Cannula 2.0 04/13/17 12:01 36.8 160 18 141/63 98 Nasal Cannula 1.0 04/13/17 11:07 91 18 122/72 Laboratory Results: Last 24 Hours Test 04/13/17 11:23 04/13/17 12:23 04/13/17 16:12 04/13/17 17:23 Creatine Kinase MB Ratio Magnesium Level 2.1 mg/dl Bedside Glucose 106 mg/dl Test 04/13/17 18:06 04/13/17 23:10 04/14/17 01:11 04/14/17 05:34 Activated Partial Thromboplast Time 75.5 SECONDS 61.5 SECONDS Partial Thromboplastin Ratio 2.9 2.4 Creatine Kinase MB 2.1 ng/ml 1.7 ng/ml Troponin I 0.022 ng/ml 0.017 ng/ml Creatine Kinase MB Ratio White Blood Count 6.38 K/uL Red Blood Count 4.81 M/uL Hemoglobin 15.7 g/dL Hematocrit 44.2 % Mean Corpuscular Volume 91.9 fL Mean Corpuscular Hemoglobin 32.6 pg Mean Corpuscular Hemoglobin Concent 35.5 g/dl RDW Standard Deviation 41.4 fL RDW Coefficient of Variation 12.3 % Platelet Count 190 K/uL Mean Platelet Volume 9.2 fL Sodium Level 140 mmol/L Potassium Level 3.8 mmol/L Chloride Level 107 mmol/L Carbon Dioxide Level 27 mmol/L Anion Gap 6.0 mmol/L Blood Urea Nitrogen 12 mg/dl Creatinine 0.88 mg/dl Est Creatinine Clear Calc Drug Dose 79.4 ml/min Estimated GFR () 99.5 Estimated GFR (Non- 85.8 BUN/Creatinine Ratio 13.7 Random Glucose 120 mg/dl Calcium Level 8.5 mg/dl
--- NOTE | 2017-04-14 11:08 | Critical Care Progress Note ---
Critical Care Progress Note Date of Service Apr 14, 2017. ICU Day ICU Day Number: 2 Subjective ERROR Objective ERROR Data Medications: Current Inpatient Medications Medications (Trade) Dose Ordered Sig/Koki Route Start Time Stop Time Status Last Admin Dose Admin Acetaminophen (Tylenol Tab) 650 mg Q4H PRN PO 04/13/17 11:45 05/13/17 11:44 Nitroglycerin (Nitrostat Tab) 0.4 mg UD PRN SL 04/13/17 11:45 05/13/17 11:44 Miscellaneous Information (Icu Protocol For Hyperglycemia) 1 ea PRN PRN N/A 04/13/17 11:45 04/15/17 11:44 Heparin Sodium/ Dextrose 500 ml @ 25 mls/hr Q20H PRN IV 04/13/17 12:45 05/13/17 12:44 04/14/17 06:22 25 MLS/HR Aspirin (Ecotrin Tab) 81 mg DAILY PO 04/14/17 09:00 05/14/17 08:59 04/14/17 08:16 81 MG Cholecalciferol (Vitamin D Tab) 1,000 inter.unit DAILY PO 04/14/17 09:00 05/14/17 08:59 04/14/17 08:17 1,000 INTER.UNIT Finasteride (Proscar Tab) 5 mg DAILY PO 04/14/17 09:00 05/14/17 08:59 04/14/17 08:17 5 MG Simvastatin (Zocor Tab) 20 mg QPM PO 04/13/17 21:00 05/13/17 20:59 04/13/17 19:56 20 MG Terazosin HCl (Hytrin Cap) 5 mg HS PO 04/13/17 21:00 05/13/17 20:59 04/13/17 19:56 5 MG Vitamin B Complex (Vitamin B Complex) 1 tab DAILY PO 04/14/17 09:00 05/14/17 08:59 04/14/17 08:17 1 TAB Ascorbic Acid (Vitamin C Tab) 500 mg DAILY PO 04/14/17 09:00 05/14/17 08:59 04/14/17 08:17 500 MG Procainamide HCl 1000 mg/Dextrose 252 ml @ 15 mls/hr [id number] IV 04/13/17 16:30 1/27/18 16:29 04/14/17 06:21 15 MLS/HR Amiodarone HCL/ Dextrose 200 ml @ 16.7 mls/hr [id number] IV 04/14/17 15:35 05/14/17 15:34 Amiodarone HCL/ Dextrose 200 ml @ 33.3 mls/hr Q6H1M IV 04/14/17 09:35 04/14/17 15:35 Future hold Vital Signs: Date Time Temp Pulse Resp B/P (MAP) Pulse Ox O2 Delivery O2 Flow Rate FiO2 04/14/17 06:00 120 18 135/77 (96) 95 Room Air 04/14/17 04:00 95 Room Air 04/14/17 04:00 36.3 65 13 122/74 (90) 95 Room Air 04/14/17 03:17 122 14 145/99 (114) 96 Room Air 04/14/17 02:00 69 14 128/79 (95) 96 Room Air 04/14/17 00:01 36.3 82 14 132/73 (92) 96 Room Air 04/13/17 23:59 95 Room Air 04/13/17 22:00 61 12 113/63 (80) 95 Room Air 04/13/17 20:00 36.8 73 16 151/60 (90) 96 Room Air 04/13/17 20:00 95 Room Air 04/13/17 18:00 82 15 125/80 (95) 96 Nasal Cannula 2.0 04/13/17 16:00 36.9 88 16 107/65 (79) 97 Nasal Cannula 2.0 04/13/17 16:00 97 Nasal Cannula 2.0 04/13/17 12:01 36.8 160 18 141/63 98 Nasal Cannula 1.0 04/13/17 11:07 91 18 122/72 04/13/17 10:30 95 133/78 Laboratory Results: Last 24 Hours Test 04/13/17 10:30 04/13/17 11:23 04/13/17 12:23 04/13/17 16:12 Urine Color YELLOW Urine Appearance CLEAR Urine pH 7.5 Urine Specific [place] 1.019 Urine Protein NEG Urine Glucose (UA) NEG Urine Ketones NEG Urine Occult Blood NEG Urine Nitrite NEG Urine Bilirubin NEG Urine Urobilinogen NEG Urine Leukocyte Esterase NEG Creatine Kinase MB Ratio Magnesium Level 2.1 mg/dl Bedside Glucose 106 mg/dl Test 04/13/17 17:23 04/13/17 18:06 04/13/17 23:10 04/14/17 01:11 Creatine Kinase MB Ratio Activated Partial Thromboplast Time 75.5 SECONDS 61.5 SECONDS Partial Thromboplastin Ratio 2.9 2.4 Creatine Kinase MB 2.1 ng/ml 1.7 ng/ml Troponin I 0.022 ng/ml 0.017 ng/ml Test 04/14/17 05:34 White Blood Count 6.38 K/uL Red Blood Count 4.81 M/uL Hemoglobin 15.7 g/dL Hematocrit 44.2 % Mean Corpuscular Volume 91.9 fL Mean Corpuscular Hemoglobin 32.6 pg Mean Corpuscular Hemoglobin Concent 35.5 g/dl RDW Standard Deviation 41.4 fL RDW Coefficient of Variation 12.3 % Platelet Count 190 K/uL Mean Platelet Volume 9.2 fL Sodium Level 140 mmol/L Potassium Level 3.8 mmol/L Chloride Level 107 mmol/L Carbon Dioxide Level 27 mmol/L Anion Gap 6.0 mmol/L Blood Urea Nitrogen 12 mg/dl Creatinine 0.88 mg/dl Est Creatinine Clear Calc Drug Dose 79.4 ml/min Estimated GFR () 99.5 Estimated GFR (Non- 85.8 BUN/Creatinine Ratio 13.7 Random Glucose 120 mg/dl Calcium Level 8.5 mg/dl
--- NOTE | 2017-04-14 11:32 | Progress Note ---
Medicine Progress Note Date & Time of Visit: Apr 14, 2017 at 11:29. Subjective 72 yoM with WPW and h/o PAF on flecainide chronically presented to the ER not feeling well, found to have short bursts of WCT that increased overnight. He was brought into the ICU and was started on procainamide with some improvement and was awaiting an EP study to evaluate further. Overnight he went into vtach and switched into atrial flutter. He received a bolus of amio and was started on an amio drip with conversion into sinus rhythm. He is currently hemodynamically stable and asymptomatic. 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 He denies dysuria, chest pain or shortness of breath. Cardiology is planning airlift to [facility] for further EP workup. Objective Last 8 Hrs Date Time Temp Pulse Resp B/P (MAP) Pulse Ox O2 Delivery O2 Flow Rate FiO2 04/14/17 11:00 73 15 101/67 (78) 96 Room Air 04/14/17 10:00 73 20 123/82 (96) 97 Room Air 04/14/17 08:00 98 Room Air 04/14/17 08:00 36.8 124 20 124/59 (80) 95 Room Air 04/14/17 06:00 120 18 135/77 (96) 95 Room Air 04/14/17 04:00 95 Room Air 04/14/17 04:00 36.3 65 13 122/74 (90) 95 Room Air Physical Exam: GEN: WNWD, in no acute distress, alert and appropriate HEENT: NC/AT, normal sclerae, MMM CARDIO: reg rate, S1/2 heard without m/g/r LUNGS: CTA bilaterally, no crackles, rales or wheezes, good diaphragmatic excursion ABD: soft, non-tender, non-distended, no rebound or guarding, +BS EXTREMITY: RP and DP palpable 2+ bilat, no LE swelling or edema, extremities are warm and well-perfused NEURO: CN 2-12 grossly intact MUSC: 5/5 strength throughout, no focal deficits SKIN: warm and dry Laboratory Results: 04/14/17 05:34 04/14/17 05:34 Test 04/13/17 08:44 04/13/17 09:34 04/13/17 10:30 04/13/17 12:23 Immature Granulocyte % (Auto) 0.2 % White Blood Count 4.93 K/uL (4.8-10.8) Red Blood Count 5.01 M/uL (4.7-6.1) Hemoglobin 16.3 g/dL (14.0-18.0) Hematocrit 46.2 % (42-52) Mean Corpuscular Volume 92.2 fL (80-100) Mean Corpuscular Hemoglobin 32.5 pg (25-34) Mean Corpuscular Hemoglobin Concent 35.3 g/dl (32-36) Platelet Count 217 K/uL (130-400) Mean Platelet Volume 9.9 fL (7.4-10.4) Neutrophils (%) (Auto) 62.5 % Lymphocytes (%) (Auto) 23.9 % Monocytes (%) (Auto) 8.5 % Eosinophils (%) (Auto) 4.1 % Basophils (%) (Auto) 0.8 % Neutrophils # (Auto) 3.08 K/uL (1.4-6.5) Lymphocytes # (Auto) 1.18 K/uL (1.2-3.4) Monocytes # (Auto) 0.42 K/uL (0.11-0.59) Eosinophils # (Auto) 0.20 K/uL (0-0.5) Basophils # (Auto) 0.04 K/uL (0-0.2) Immature Granulocyte # (Auto) 0.01 K/uL (0.00-0.02) Total Bilirubin 0.4 mg/dl (0.2-1) Aspartate Amino Transf (AST/SGOT) 26 U/L (15-37) Alanine Aminotransferase (ALT/SGPT) 31 U/L (12-78) Alkaline Phosphatase 73 U/L (45-117) Total Protein 7.3 gm/dl (6.4-8.2) Albumin 3.8 gm/dl (3.4-5.0) Globulin 3.5 gm/dl (2.5-4.0) Albumin/Globulin Ratio 1.1 (0.9-2) Chemistry Specimen Hemolysis Prothrombin Time 10.0 SECONDS (9.0-12.0) Prothromb Time International Ratio 1.0 (0.9-1.1) Urine Color YELLOW Urine Appearance CLEAR (CLEAR) Urine pH 7.5 (4.5-7.5) Urine Specific [place] 1.019 (1.000-1.030) Urine Protein NEG (NEG) Urine Glucose (UA) NEG (NEG) Urine Ketones NEG (NEG) Urine Occult Blood NEG (NEG) Urine Nitrite NEG (NEG) Urine Bilirubin NEG (NEG) Urine Urobilinogen NEG (NEG) Urine Leukocyte Esterase NEG (NEG) Magnesium Level 2.1 mg/dl (1.8-2.4) Test 04/13/17 16:12 04/13/17 23:10 04/14/17 01:11 04/14/17 05:34 Bedside Glucose 106 mg/dl (70-99) Creatine Kinase MB 1.7 ng/ml (0.5-3.6) Creatine Kinase MB Ratio (0-3.0) Troponin I 0.017 ng/ml (0-0.045) Activated Partial Thromboplast Time 61.5 SECONDS (21.0-31.0) Partial Thromboplastin Ratio 2.4 Red Blood Count 4.81 M/uL (4.7-6.1) Mean Corpuscular Volume 91.9 fL (80-100) Mean Corpuscular Hemoglobin 32.6 pg (25-34) Mean Corpuscular Hemoglobin Concent 35.5 g/dl (32-36) RDW Standard Deviation 41.4 fL (36.4-46.3) RDW Coefficient of Variation 12.3 % (11.5-14.5) Mean Platelet Volume 9.2 fL (7.4-10.4) Anion Gap 6.0 mmol/L (3-11) Est Creatinine Clear Calc Drug Dose 79.4 ml/min Estimated GFR () 99.5 Estimated GFR (Non- 85.8 BUN/Creatinine Ratio 13.7 (10-20) Calcium Level 8.5 mg/dl (8.5-10.1) Date/Time Source Procedure Growth Status 04/13/17 11:15 Nasal MRSA DNA Surveillance Screen - Final Specimen Negative for MRSA by DNA Probe Complete 04/13/17 10:30 Urine , Clean Catch Urine Culture Pending Received Last 24 Hours Test 04/13/17 12:23 04/13/17 16:12 04/13/17 17:23 04/13/17 18:06 Magnesium Level 2.1 mg/dl Bedside Glucose 106 mg/dl Creatine Kinase MB Ratio Activated Partial Thromboplast Time 75.5 SECONDS Partial Thromboplastin Ratio 2.9 Creatine Kinase MB 2.1 ng/ml Troponin I 0.022 ng/ml Test 04/13/17 23:10 04/14/17 01:11 04/14/17 05:34 Creatine Kinase MB 1.7 ng/ml Creatine Kinase MB Ratio Troponin I 0.017 ng/ml Activated Partial Thromboplast Time 61.5 SECONDS Partial Thromboplastin Ratio 2.4 White Blood Count 6.38 K/uL Red Blood Count 4.81 M/uL Hemoglobin 15.7 g/dL Hematocrit 44.2 % Mean Corpuscular Volume 91.9 fL Mean Corpuscular Hemoglobin 32.6 pg Mean Corpuscular Hemoglobin Concent 35.5 g/dl RDW Standard Deviation 41.4 fL RDW Coefficient of Variation 12.3 % Platelet Count 190 K/uL Mean Platelet Volume 9.2 fL Sodium Level 140 mmol/L Potassium Level 3.8 mmol/L Chloride Level 107 mmol/L Carbon Dioxide Level 27 mmol/L Anion Gap 6.0 mmol/L Blood Urea Nitrogen 12 mg/dl Creatinine 0.88 mg/dl Est Creatinine Clear Calc Drug Dose 79.4 ml/min Estimated GFR () 99.5 Estimated GFR (Non- 85.8 BUN/Creatinine Ratio 13.7 Random Glucose 120 mg/dl Calcium Level 8.5 mg/dl Assessment & Plan 72 yoM with WPW and h/o PAF on flecainide chronically presented to the ER not feeling well, found to have short bursts of WCT that increased overnight. He was brought into the ICU and was started on procainamide with some improvement and was awaiting an EP study to evaluate further. Overnight he went into vtach and switched into atrial flutter. He received a bolus of amio and was started on an amio drip with conversion into sinus rhythm. He is currently hemodynamically stable and asymptomatic. 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 He denies dysuria, chest pain or shortness of breath. Cardiology is planning airlift to [facility] for further EP workup. NSVT in setting of WPW w PAF-as above BPH - U/A does not suggest infection - continue terazosin and finasteride DYSLIPIDEMIA- continue statin DVT proph-per ICU team Full Code DISPO-air lift to [facility] today. Karime Ramirez DO [facility] Hospitalist Current Inpatient Medications: Current Inpatient Medications Medications (Trade) Dose Ordered Sig/Koki Route Start Time Stop Time Status Last Admin Dose Admin Acetaminophen (Tylenol Tab) 650 mg Q4H PRN PO 04/13/17 11:45 05/13/17 11:44 Nitroglycerin (Nitrostat Tab) 0.4 mg UD PRN SL 04/13/17 11:45 05/13/17 11:44 Miscellaneous Information (Icu Protocol For Hyperglycemia) 1 ea PRN PRN N/A 04/13/17 11:45 04/15/17 11:44 Heparin Sodium/ Dextrose 500 ml @ 25 mls/hr Q20H PRN IV 04/13/17 12:45 05/13/17 12:44 04/14/17 06:22 25 MLS/HR Aspirin (Ecotrin Tab) 81 mg DAILY PO 04/14/17 09:00 05/14/17 08:59 04/14/17 08:16 81 MG Cholecalciferol (Vitamin D Tab) 1,000 inter.unit DAILY PO 04/14/17 09:00 05/14/17 08:59 04/14/17 08:17 1,000 INTER.UNIT Finasteride (Proscar Tab) 5 mg DAILY PO 04/14/17 09:00 05/14/17 08:59 04/14/17 08:17 5 MG Simvastatin (Zocor Tab) 20 mg QPM PO 04/13/17 21:00 05/13/17 20:59 04/13/17 19:56 20 MG Terazosin HCl (Hytrin Cap) 5 mg HS PO 04/13/17 21:00 05/13/17 20:59 04/13/17 19:56 5 MG Vitamin B Complex (Vitamin B Complex) 1 tab DAILY PO 04/14/17 09:00 05/14/17 08:59 04/14/17 08:17 1 TAB Ascorbic Acid (Vitamin C Tab) 500 mg DAILY PO 04/14/17 09:00 05/14/17 08:59 04/14/17 08:17 500 MG Procainamide HCl 1000 mg/Dextrose 252 ml @ 15 mls/hr [id number] IV 04/13/17 16:30 05/13/17 16:29 04/14/17 06:21 15 MLS/HR Amiodarone HCL/ Dextrose 200 ml @ 16.7 mls/hr [id number] IV 04/14/17 15:35 05/14/17 15:34 Amiodarone HCL/ Dextrose 200 ml @ 33.3 mls/hr Q6H1M IV 04/14/17 09:35 04/14/17 15:35 [facility] hold
--- NOTE | 2017-04-20 11:53 | Discharge Summary ---
Discharge Summary Date of Service Apr 20, 2017. Discharge Summary Admission Date: Apr 13, 2017 at 10:48 Discharge Date: May 15, 2017 Discharge Disposition: Acute care facility Principal Diagnosis: [id number] or a concealed bypass tract with atrial flutter on wide complex tachycardia Procedures: None. Vaccinations: None. Consultations: Cardiology-Anna Mata Pending Studies/Follow-Up: see instructions below. Admission Information HPI (per Admitting provider): 72 year old male who presents to the ED with a chief complaint of generally not feeling well. Patient reports his symptoms started this morning when he woke up. He reports he had a feeling of fullness in his lower abdomen. He was able to urinate and have a bowel movement and those symptoms somewhat improved. He reports he still continued to feel "not quite right." He took his blood pressure and reports his machine had alerted him that his heart rate was irregular. However he does have history of a. fib. Patient denies chest pain, palpitations, and shortness of breath. No lightheadedness, dizziness, diaphoresis, or syncopal events. He denies fever and chills. No abdominal pain, nausea, vomiting, or diarrhea. In the ED, patient was found to be having short bursts of wide complex tachycardia with underlying a fib. Patient remained asymptomatic and hemodynamically stable in the ED. He was evaluated urgently by Dr. Castillo in the ED. Physical Exam (per Admitting): General Appearance: WD/WN, no apparent distress Head: normocephalic, atraumatic Eyes: normal inspection, EOMI, sclerae normal ENT: hearing grossly normal, + pertinent finding (mucous membranes moist) Neck: supple, no JVD, no carotid bruits, trachea midline Respiratory/Chest: lungs clear, normal breath sounds, no respiratory distress Cardiovascular: no edema, normal peripheral pulses, + tachycardia, + irregularly irregular Abdomen/GI: normal bowel sounds, non tender, soft, no organomegaly Extremities/Musculoskelatal: normal inspection, no calf tenderness, normal capillary refill Neurologic/Psych: no motor/sensory deficits, alert, normal mood/affect, oriented x 3 Skin: normal color, warm/dry Hospital Course 72 yoM with WPW and h/o PAF on flecainide chronically presented to the ER not feeling well, found to have short bursts of WCT that increased overnight. He was brought into the ICU and was started on procainamide with some improvement and was awaiting an EP study to evaluate further. Overnight he went into vtach and switched into atrial flutter. He received a bolus of amio and was started on an amio drip with conversion into sinus rhythm. He is currently hemodynamically stable and asymptomatic. 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 He denies dysuria, chest pain or shortness of breath. Cardiology is planning airlift to [facility] for further EP workup. He was transferred on procainamide and amiodarone. NSVT in setting of WPW w PAF-as above BPH - U/A does not suggest infection - continue terazosin and finasteride DYSLIPIDEMIA- continue statin Total time spent on discharge = 60 minutes This includes examination of the patient, discharge planning, medication reconciliation, and communication with other providers. Discharge Instructions see scanned dc instructions per Dr. Castillo. Additional Copies To Tacho Diaz D.O.
== END 2017-04-14 11:30 | disposition short-term general hospital (02) | DRG 310 ==
LOC: C.EDB 08:26 → C.MSICU 10:48 → ENRESERV 10:53
PROVIDERS: ADMIT Internal Medicine; ATTEND Hospitalist
DX: I45.6 Pre-excitation syndrome (principal); I48.0 Paroxysmal atrial fibrillation; I47.2 Ventricular tachycardia; I45.89 Other specified conduction disorders; I48.92 Unspecified atrial flutter; N40.0 Benign prostatic hyperplasia without lower urinary tract symptoms; E78.5 Hyperlipidemia, unspecified; Z79.82 Long term (current) use of aspirin

== ENCOUNTER 2017-12-03 06:16 | Inpatient (IN) | payer OTHER ==
[2017-12-03] VITALS (14 sets, daily range): BP systolic 106–144; BP diastolic 61–92; PULSE 43–57; TEMP 36.4–36.9; O2SAT 96–98; Ht 170.2 cm; Wt 77.8 kg
[~2017-12-03] VITALS: Ht 170.2 cm; Wt 77.8 kg
[~2017-12-03 06:16] MED LIST changes: -CALC-214 PO; +CHOL1000 PO; -CHOL100010 PO; -OMEG10007 PO
[2017-12-03] MEDS ORDERED: DRIP IV STA (06:37)
[2017-12-03] MEDS ORDERED: [UNRECOGNIZED DRUG - OTHER] IV STA (06:37)
[2017-12-03] MEDS ORDERED: PROCAINAMIDE HCL INJ 500 MG/ML 2 ML VIAL IV ONE (06:39)
[2017-12-03] MEDS ORDERED: LORAZEPAM 2 MG/ML 1 ML VIAL ONE (06:44)
[2017-12-03] MEDS ORDERED: DEXTROSE 5% IV SCH (06:45)
[2017-12-03] MEDS ORDERED: PROCAINAMIDE HCL IV SCH (06:45)
[2017-12-03 06:52] LABS: ISTAT IONIZED CALCIUM 1.08 mmol/l (1.12-1.32); ISTAT POTASSIUM 3.8 mEq/L (3.3-5.0)
[2017-12-03] MEDS ORDERED: ASPIRIN 81 MG CHEW PO STA (06:54)
[2017-12-03] MEDS ORDERED: HEPARIN SOD 5000 UNIT/0.5 ML CARP ONE (06:57)
[2017-12-03] MEDS ORDERED: HEPARIN 25000 UNIT/500 ML D5W ONE (06:57)
[2017-12-03 07:08] LABS: INR 0.9 (0.9-1.1); PTT PATIENT 25.2 SECONDS (21.0-31.0)
--- NOTE | 2017-12-03 07:11 | DIAGNOSTIC IMAGING REPORT ---
CHEST ONE VIEW PORTABLE CLINICAL HISTORY: Chest pain. COMPARISON STUDY: Chest radiograph April 13, 2017 per FINDINGS: Lung volumes are normal. No pneumothorax or pleural effusion is noted. No consolidation is evident. There is no evidence for pulmonary edema. Mild cardiomegaly is noted. There is mild S-shaped curvature of the thoracolumbar spine. IMPRESSION: No acute cardiopulmonary findings. No change in appearance of the chest. Electronically signed by: Jacky Russell M.D. 12/03/2017 7:09 AM Dictated Date/Time: 12/03/2017 7:09 AM
[2017-12-03 07:16] LABS: ALBUMIN 3.5 gm/dl (3.4-5.0); CALCIUM 8.7 mg/dl (8.5-10.1); CREATININE 1.04 mg/dl (0.60-1.40); POTASSIUM 3.6 mmol/L (3.5-5.1)
--- NOTE | 2017-12-03 07:21 | EMERGENCY ROOM VISIT NOTE ---
History Report prepared by Frandy: Yousif Cruz Under the Supervision of: Dr. Parminder Givens M.D. First contact with patient: 06:37 Chief Complaint: PALPITATIONS Stated Complaint: IRREGULAR HEART BEAT AND BLOOD PRESSURE Nursing Triage Summary: Pt presents with c/o distress in lower abd "like he needs to have a bowel movement." States woke up this morning with palpitations and irregular heart beat. 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 Denies n/v/d, sob, lightheadedness. History of Present Illness The patient is a 72 year old male who presents to the Emergency Room with concerns over his blood pressure and pulse rate. The patient states that he took his blood pressure this morning on a home BP cuff. The pressure was elevated, and the device would not read his pulse rate. This concerned the patient as he has a history of Chao Parkinson White syndrome. This prompted him to come into the ED. The patient denies any chest pain, shortness of breath , or traumatic falls recently. The patient's at bedside notes that his health type technician in [place] recently did a halter monitor test and took him off multiple cardiac medications as well as Xarelto. Source of History: patient, spouse/significant other Onset: Checked his BP and pulse this morning Position: chest (Cardiac) Quality: other (V-tachy) Timing: constant (V-tach since this morning) Associated Symptoms: No chest pain, No SOB Review of Systems See HPI for pertinent positives and negatives. A total of ten systems were reviewed and were otherwise negative. 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 (5) WPW (Tmomx-Fvqkvrrnw-Aybbw syndrome) Surgical Problems: (1) H/O inguinal hernia repair (2) S/P excision of lipoma Family History FH: cancer MOTHER Social History Smoking Status: Never Smoker Marital Status: Housing Status: lives with family Current/Historical Medications Scheduled Ascorbic Acid (Vitamin C), 1 TAB PO DAILY Aspirin (Aspirin Ec), 81 MG PO DAILY Cholecalciferol (Vitamin D3), 1,000 UNITS PO DAILY Finasteride (Proscar), 5 MG PO DAILY Simvastatin (Zocor), 20 MG PO QPM Terazosin (Hytrin), 5 MG PO HS Vitamin B Complex (Vitamin B Complex), 1 TAB PO DAILY Allergies Coded Allergies: Penicillins (Verified Allergy, Unknown, `, 12/03/17) Physical Exam Vital Signs Date Time Temp Pulse Resp B/P (MAP) Pulse Ox O2 Delivery O2 Flow Rate FiO2 12/03/17 07:56 58 16 111/65 96 Room Air 12/03/17 07:51 58 17 110/65 98 Room Air 12/03/17 07:46 60 17 110/68 97 Room Air 12/03/17 07:40 57 14 112/72 97 12/03/17 07:35 60 19 118/70 97 Room Air 12/03/17 07:30 57 17 113/66 97 Room Air 12/03/17 07:26 70 23 148/71 96 Room Air 12/03/17 07:20 65 14 115/69 96 Room Air 12/03/17 07:19 97 Room Air 12/03/17 07:16 62 14 112/69 97 Room Air 12/03/17 07:11 68 17 116/71 97 Room Air 12/03/17 07:05 68 20 109/68 97 Room Air 12/03/17 07:02 68 19 109/66 98 Room Air 12/03/17 07:00 68 14 113/72 98 Room Air 12/03/17 06:55 72 17 110/71 97 Room Air 12/03/17 06:50 65 14 102/73 95 Room Air 12/03/17 06:49 62 12 115/71 95 Room Air 12/03/17 06:47 109 14 93/75 95 Room Air 12/03/17 06:47 66 12/03/17 06:46 99 21 125/60 96 Room Air 12/03/17 06:46 94 12/03/17 06:44 208 19 117/77 96 Room Air 12/03/17 06:27 96 Room Air 12/03/17 06:26 36.5 193 18 112/ 98 Room Air 12/03/17 06:24 233 Physical Exam Physical Exam GENERAL: He is oriented to person, place, and time. He appears well-developed and well-nourished. The patient appears to be distressed. HENT: Exam performed. Head: Normocephalic and atraumatic. Right Ear: External ear normal. No mastoid tenderness. Left Ear: External ear normal. No mastoid tenderness. Mouth/Throat: The oropharynx is clear and moist. No trismus in the jaw. No dental abscesses or uvula swelling. No oropharyngeal exudate or tonsillar abscesses. EYES: Conjunctivae and EOM are normal. Pupils are equal, round, and reactive to light. Right eye exhibits no discharge. Left eye exhibits no discharge. No scleral icterus. NECK: Normal range of motion. Neck supple. No JVD present. No spinous process tenderness present. No carotid bruit present. No rigidity. No tracheal deviation and normal range of motion present. No Brudzinski's sign and no Kernig 's sign noted. CV: Tachycardic rate, irregular rhythm, and intact distal pulses. There is no peripheral edema. Palpable radial pulses bue. PULM/CHEST: Effort normal and breath sounds normal. No respiratory distress. No stridor. He has no wheezes. He has no rales. Chest Wall: He exhibits no tenderness. ABD: The abdomen is soft. Bowel sounds are normal. He has no distension. No mass is present. There is no tenderness. There is no rebound, no guarding, no Naranjo's sign and no tenderness at McBurney's point. Rovsig negative. MUSC/SKEL: Normal range of motion. There is no peripheral edema, tenderness or deformity. LYMPH: No cervical adenopathy. NEURO: He is alert and oriented to person, place, and time. He has normal strength. No cranial nerve deficit or sensory deficit. Coordination and gait normal. GCS eye subscore is 4. GCS verbal subscore is 5. GCS motor subscore is 6. Cerebellar tests wnl. SKIN: Skin is warm and dry. He is not diaphoretic. PSYCH: He has a normal mood and affect. Behavior is normal. Judgment and thought content normal. Medical Decision & Procedures ER Provider Diagnostic Interpretation: Radiology results as stated below per my review and radiologist interpretation: CHEST ONE VIEW PORTABLE CLINICAL HISTORY: Chest pain. COMPARISON STUDY: Chest radiograph April 13, 2017 per FINDINGS: Lung volumes are normal. No pneumothorax or pleural effusion is noted. No consolidation is evident. There is no evidence for pulmonary edema. Mild cardiomegaly is noted. There is mild S-shaped curvature of the thoracolumbar spine. IMPRESSION: No acute cardiopulmonary findings. No change in appearance of the chest. Electronically signed by: Jacky Russell M.D. 12/03/2017 7:09 AM Dictated Date/Time: 12/03/2017 7:09 AM Laboratory Results 12/03/17 06:34 Red Blood Count 4.55, Mean Corpuscular Volume 92.7, Mean Corpuscular Hemoglobin 31.6, Mean Corpuscular Hemoglobin Concent 34.1, Mean Platelet Volume 9.7, Neutrophils (%) (Auto) 66.7, Lymphocytes (%) (Auto) 19.8, Monocytes (%) (Auto) 9.3, Eosinophils (%) (Auto) 3.7, Basophils (%) (Auto) 0.5, Neutrophils # (Auto) 3.64, Lymphocytes # (Auto) 1.08, Monocytes # (Auto) 0.51, Eosinophils # (Auto) 0.20, Basophils # (Auto) 0.03 12/03/17 06:34 Test 12/03/17 06:34 12/03/17 06:37 12/03/17 06:38 White Blood Count 5.46 K/uL (4.8-10.8) Red Blood Count 4.55 M/uL (4.7-6.1) Hemoglobin 14.4 g/dL (14.0-18.0) Hematocrit 42.2 % (42-52) Mean Corpuscular Volume 92.7 fL (80-100) Mean Corpuscular Hemoglobin 31.6 pg (25-34) Mean Corpuscular Hemoglobin Concent 34.1 g/dl (32-36) Platelet Count 188 K/uL (130-400) Mean Platelet Volume 9.7 fL (7.4-10.4) Neutrophils (%) (Auto) 66.7 % Lymphocytes (%) (Auto) 19.8 % Monocytes (%) (Auto) 9.3 % Eosinophils (%) (Auto) 3.7 % Basophils (%) (Auto) 0.5 % Neutrophils # (Auto) 3.64 K/uL (1.4-6.5) Lymphocytes # (Auto) 1.08 K/uL (1.2-3.4) Monocytes # (Auto) 0.51 K/uL (0.11-0.59) Eosinophils # (Auto) 0.20 K/uL (0-0.5) Basophils # (Auto) 0.03 K/uL (0-0.2) RDW Standard Deviation 41.1 fL (36.4-46.3) RDW Coefficient of Variation 12.2 % (11.5-14.5) Immature Granulocyte % (Auto) 0.0 % Immature Granulocyte # (Auto) 0.00 K/uL (0.00-0.02) Prothrombin Time 9.6 SECONDS (9.0-12.0) Prothromb Time International Ratio 0.9 (0.9-1.1) Est Creatinine Clear Calc Drug Dose 60.0 ml/min Estimated GFR () 82.7 Estimated GFR (Non- 71.4 BUN/Creatinine Ratio 15.1 (10-20) Calcium Level 8.7 mg/dl (8.5-10.1) Magnesium Level 2.0 mg/dl (1.8-2.4) Total Bilirubin 0.5 mg/dl (0.2-1) Direct Bilirubin 0.2 mg/dl (0-0.2) Aspartate Amino Transf (AST/SGOT) 22 U/L (15-37) Alanine Aminotransferase (ALT/SGPT) 23 U/L (12-78) Alkaline Phosphatase 66 U/L (45-117) Total Protein 7.0 gm/dl (6.4-8.2) Albumin 3.5 gm/dl (3.4-5.0) Lipase 77 U/L (73-393) Thyroid Stimulating Hormone (TSH) 6.350 uIu/ml (0.300-4.500) Free Thyroxine 0.93 ng/dl (0.80-1.60) Bedside Hemoglobin 13.9 g/dl (14.0-18.0) Bedside Hematocrit 41 % (42-52) Bedside Sodium 142 mEq/L (135-144) Bedside Potassium 3.8 mEq/L (3.3-5.0) Bedside Chloride 102 mEq/L (101-112) Bedside Total CO2 27 mEq/l (24-31) Anion Gap 18.0 mmol/L (16-25) Bedside Blood Urea Nitrogen 18 mg/dl (7-18) Bedside Creatinine 1.0 mg/dl (0.6-1.3) Bedside Glucose (other) 123 mg/dl (70-99) Bedside Ionized Calcium (Blaine) 1.08 mmol/l (1.12-1.32) Bedside Troponin I 0.030 ng/ml (0-0.045) Date/Time Source Procedure Growth Status 12/03/17 07:30 Nasal MRSA DNA Surveillance Screen - Final Specimen Negative for MRSA by DNA Probe Complete Laboratory results reviewed by me Medications Administered Medications (Trade) Dose Ordered Sig/Koki Route Start Time Stop Time Status Last Admin Dose Admin Procainamide HCl (Procainamide HCl Inj) 1,000 mg STK-MED ONCE IV 12/03/17 06:39 12/03/17 06:40 DC 12/03/17 06:45 1,000 MG Procainamide HCl 1000 mg/Dextrose 252 ml @ 15 mls/hr [id number] IV 12/03/17 06:45 01/02/18 06:44 12/03/17 06:55 15 MLS/HR Aspirin (Aspirin Chew) 324 mg NOW STAT PO 12/03/17 06:54 12/03/17 06:55 DC 12/03/17 06:58 324 MG Heparin Sodium/ Dextrose (Heparin 25,000 Unit/500ml D5W) 25,000 unit STK-MED ONCE .ROUTE 12/03/17 06:57 12/03/17 06:58 DC 12/03/17 06:57 25,000 UNIT Heparin Sodium (Porcine) (Heparin Sq 5000 Unit/0.5ml) 5,000 unit STK-MED ONCE .ROUTE 12/03/17 06:57 12/03/17 06:58 DC 12/03/17 06:57 5,000 UNIT Potassium Chloride (Klor-Con M10) 20 meq NOW STAT PO 12/03/17 07:27 12/03/17 07:46 DC 12/03/17 09:04 20 MEQ ECG Per My Interpretation Indication: tachycardia, other (Arrhythmia) Rate (beats per minute): 220 Rhythm: v-tach Findings: other (QRS 180, QTC 478) Change: 0627: V-tach 208, 543 QTC 0651 :Post procainamide bolus,, SR 64, CT, QRS,QTC intervals WNL, no KM or STD. ED Course 0631: The patient was evaluated in room A10. A complete history and physical exam was performed. Patient was immediately seen in the emergency department on arrival. On the monitor the patient appear to have a wide-complex tachycardia concerning for V. tach versus reentrant tachycardia with WPW. 2 large-bore IVs were placed and IV fluids were started. Cardiac pads were placed on the patient. 0645: POC troponin within normal limits. POC potassium within normal limits. Given the patient's history of WPW, heart rate control will be attempted to be established with medications that will not affect the AV node. Procainamide 1 g IV push ordered over 1 minute. 0653: Status post procainamide bolus, EKG showed sinus rhythm with a rate of 64 , CT, QRS,QTC intervals WNL, no ST elevation or ST depression. Status post procainamide bolus patient had a transient low blood pressure at 93/75. This quickly resolved with IV fluid bolus. Repeat blood pressure 115/71. Procainamide infusion will be started at 1 mg/min. ordered Heparin bolus and drip. 0657: I discussed the case with Dr. Richardson - Cardiology and Dr. Olson - [facility] [place] ICU, they agree with treatment plan and admission to hospitalist service to the ICU. 0659: I discussed the case with Dr. Yoon - [facility] Hospitalist. He will evaluate the patient for further intervention. 0745: Labs including troponin within normal limits. Chest x-ray showed no acute findings. Patient continues to be in sinus rhythm with a stable blood pressure. Patient resting comfortably. Patient will be admitted to the ICU. Medical Decision 0631: The patient was evaluated in room A10. A complete history and physical exam was performed. Patient was immediately seen in the emergency department on arrival. On the monitor the patient appear to have a wide-complex tachycardia concerning for V. tach versus reentrant tachycardia with WPW. 2 large-bore IVs were placed and IV fluids were started. Cardiac pads were placed on the patient. 0645: POC troponin within normal limits. POC potassium within normal limits. Given the patient's history of WPW, heart rate control will be attempted to be established with medications that will not affect the AV node. Procainamide 1 g IV push ordered over 1 minute. 0653: Status post procainamide bolus, EKG showed sinus rhythm with a rate of 64 , CT, QRS,QTC intervals WNL, no ST elevation or ST depression. Status post procainamide bolus patient had a transient low blood pressure at 93/75. This quickly resolved with IV fluid bolus. Repeat blood pressure 115/71. Procainamide infusion will be started at 1 mg/min. ordered Heparin bolus and drip. 0657: I discussed the case with Dr. Dylan Schafer and Dr. Wesley [facility] ICU, they agree with treatment plan and admission to hospitalist service to the ICU. 0659: I discussed the case with Dr. Car Kitchen. He will evaluate the patient for further intervention. 0745: Labs including troponin within normal limits. Chest x-ray showed no acute findings. Patient continues to be in sinus rhythm with a stable blood pressure. Patient resting comfortably. Patient will be admitted to the ICU. Medication Reconcilliation Current Medication List: was personally reviewed by me Blood Pressure Screening Patient's blood pressure: Normal blood pressure Consults Time Called: 0655 Consulting Physician: Dr. Dylan Schafer and Dr. Wesley [facility] ICU Returned Call: 0657 I discussed the case with Dr. Dylan Schafer and Dr. Wesley [facility] ICU, they agree with treatment plan and admission to hospitalist service. Additional Consults: Time Called: 0658 Consulted Physician: Dr. Car Kitchen Returned Call: [phone] Additional Comments: I discussed the case with Dr. Car Kitchen. He will evaluate the patient for further intervention. Impression Primary Impression: Ventricular tachycardia Additional Impression: Ydmlq-Cryutkwry-Kjvri (WPW) syndrome Critical Care I have personally spent greater than 68 minutes of critical care time in the direct management of this patient. This includes bedside care, interpretation of diagnostic studies, and testing, discussion with consultants, patient, and family members, and other required patient management activities. This 68 minutes is in excess of all separately billable procedures. Scribe Attestation The scribe's documentation has been prepared under my direction and personally reviewed by me in its entirety. I confirm that the note above accurately reflects all work, treatment, procedures, and medical decision making performed by me. The chart was completed utilizing [employer] Speech voice recognition software. Grammatical errors, random word insertions, pronoun errors, and incomplete sentences are an occasional consequence of this system due to software limitations, ambient noise, and hardware issues. Any formal questions or concerns about the content, text, or information contained within the body of this dictation should be directly addressed to the physician for clarification. Departure Information Dispostion Being Evaluated By Hospitalist Referrals Tacho iDaz D.O. (PCP) Patient Instructions My [facility] Problem Qualifiers
[2017-12-03] MEDS ORDERED: POTASSIUM CHLORIDE 10 MEQ TABCR PO STA (07:27)
[2017-12-03 07:29] LABS: BASO % 0.5 %; BASO ABS # 0.03 K/uL (0-0.2); EOS % 3.7 %; HEMATOCRIT 42.2 % (42-52); HEMOGLOBIN 14.4 g/dL (14.0-18.0); LYMPH % 19.8 %; LYMPH ABS # 1.08 K/uL (1.2-3.4); MEAN CELL VOLUME 92.7 fL (80-100); MEAN CORPUSCULAR HEMOGLOBIN 31.6 pg (25-34); MEAN CORPUSCULAR HGB CONC 34.1 g/dl (32-36); MEAN PLATELET VOLUME 9.7 fL (7.4-10.4); MONO % 9.3 %; MONO ABS # 0.51 K/uL (0.11-0.59); NEUT % 66.7 %; NEUT ABS # 3.64 K/uL (1.4-6.5); PLATELET COUNT 188 K/uL (130-400); RED CELL DISTRIBUTION WIDTH CV 12.2 % (11.5-14.5); RED CELL DISTRIBUTION WIDTH SD 41.1 fL (36.4-46.3); WHITE BLOOD COUNT 5.46 K/uL (4.8-10.8)
[2017-12-03] MEDS ORDERED: ACETAMINOPHEN 325 MG TAB PO PRN (08:00)
[2017-12-03] MEDS ORDERED: ICU PROTOCOL FOR HYPERGLYCEMIA PRN (08:00)
--- NOTE | 2017-12-03 08:28 | History and Physical ---
History & Physical Date & Time of Service: Dec 03, 2017 at 08:10 Chief Complaint: Irregular Heart Beat And Blood Pressure Primary Care Physician: Tacho Diaz D.O. History of Present Illness Source: patient, family, clinic records, hospital records This is a 72 year old male with a past medical history of multiple arrhythmias including atrial fibrillation/flutter 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 Patient had been seeing EP specialists and had an ablation for his atrial flutter and his WPW - and subsequently taken off of Xarelto and any other cardiac medications. He has been doing well since April 2017 after the ablations. States he was in his usual state of health until this morning, felt abdominal cramping and a "funny feeling" in his chest, he checked his pulse at home and it was in the 200s. Presented to the ED, found to have a wide complex tachyarrhythmia. Given Procainamide bolus/drip and has since converted to a sinus rhythm. Currently denies any symptoms. Past Medical/Surgical History Medical Problems: (1) Afib (2) BPH (benign prostatic hyperplasia) (3) Dyslipidemia (4) Wide-complex tachycardia (5) WPW (Sljql-Znngpiejv-Imccl syndrome) Surgical Problems: (1) H/O inguinal hernia repair (2) S/P excision of lipoma Family History FH: cancer MOTHER Social History Smoking Status: Never Smoker Marital Status: Immunizations History of Tetanus Vaccine?: Yes Tetanus Immunization Date: Oct 17, 2007 History of Pneumococcal: Yes Pneumococcal Date: Nov 30, 2015 Allergies Coded Allergies: Penicillins (Verified Allergy, Unknown, `, 12/03/17) Home Medications Scheduled Ascorbic Acid (Vitamin C), 1 TAB PO DAILY Aspirin (Aspirin Ec), 81 MG PO DAILY Cholecalciferol (Vitamin D3), 1,000 UNITS PO DAILY Finasteride (Proscar), 5 MG PO DAILY Simvastatin (Zocor), 20 MG PO QPM Terazosin (Hytrin), 5 MG PO HS Vitamin B Complex (Vitamin B Complex), 1 TAB PO DAILY Review of Systems Constitutional: No fever, No chills, No weakness Eyes: No worsening of vision ENT: No hearing loss Respiratory: No cough, No sputum, No wheezing, No shortness of breath, No dyspnea on exertion, No dyspnea at rest, No hemoptysis Cardiovascular: + palpitations, No chest pain, No edema Abdomen: No pain, No nausea, No vomiting, No diarrhea, No constipation, No GI bleeding Musculoskeletal: No joint pain, No muscle pain Genitourinary - Male: + urinary retention, No hematuria, No dysuria, No urinary frequency, No urinary urgency, No urinary hesitancy, No urinary incontinence Neurologic: No memory loss Psychiatric: No depression symptoms, No anxiety, No insomnia Endocrine: No fatigue Hematologic / Lymphatic: No abnormal bleeding/bruising Integumentary: No rash Allergic / Immunologic: No environmental allergies, No seasonal allergies Physical Exam Vital Signs Date Time Temp Pulse Resp B/P (MAP) Pulse Ox O2 Delivery O2 Flow Rate FiO2 12/03/17 08:06 56 13 109/66 97 Room Air 12/03/17 08:03 55 15 113/66 97 Room Air 12/03/17 07:56 58 16 111/65 96 Room Air 12/03/17 07:51 58 17 110/65 98 Room Air 12/03/17 07:46 60 17 110/68 97 Room Air 12/03/17 07:40 57 14 112/72 97 12/03/17 07:35 60 19 118/70 97 Room Air 12/03/17 07:30 57 17 113/66 97 Room Air 12/03/17 07:26 70 23 148/71 96 Room Air 12/03/17 07:20 65 14 115/69 96 Room Air 12/03/17 07:19 97 Room Air 12/03/17 07:16 62 14 112/69 97 Room Air 12/03/17 07:11 68 17 116/71 97 Room Air 12/03/17 07:05 68 20 109/68 97 Room Air 12/03/17 07:02 68 19 109/66 98 Room Air 12/03/17 07:00 68 14 113/72 98 Room Air 12/03/17 06:55 72 17 110/71 97 Room Air 12/03/17 06:50 65 14 102/73 95 Room Air 12/03/17 06:49 62 12 115/71 95 Room Air 12/03/17 06:47 109 14 93/75 95 Room Air 12/03/17 06:47 66 12/03/17 06:46 99 21 125/60 96 Room Air 12/03/17 06:46 94 12/03/17 06:44 208 19 117/77 96 Room Air 12/03/17 06:27 96 Room Air 12/03/17 06:26 36.5 193 18 112/ 98 Room Air 12/03/17 06:24 233 General Appearance: no apparent distress Head: normocephalic, atraumatic Eyes: normal inspection ENT: hearing grossly normal Neck: supple Respiratory/Chest: chest non-tender, lungs clear, normal breath sounds, no respiratory distress, no accessory muscle use Cardiovascular: regular rate, rhythm, no edema, no gallop, no JVD, no murmur, normal peripheral pulses Abdomen/GI: normal bowel sounds, non tender, soft Extremities/Musculoskelatal: normal inspection, no calf tenderness, normal capillary refill, no pedal edema, normal range of motion Neurologic/Psych: dry finisher II-XII nml as tested, no motor/sensory deficits, alert, normal mood/affect, oriented x 3 Skin: normal color, warm/dry, no rash Lymphatic: no adenopathy Diagnostics Laboratory Results Results Past 24 Hours Test 12/03/17 06:34 12/03/17 06:37 12/03/17 06:38 Range/Units White Blood Count 5.46 4.8-10.8 K/uL Red Blood Count 4.55 4.7-6.1 M/uL Hemoglobin 14.4 14.0-18.0 g/dL Hematocrit 42.2 42-52 % Mean Corpuscular Volume 92.7 80-100 fL Mean Corpuscular Hemoglobin 31.6 25-34 pg Mean Corpuscular Hemoglobin Concent 34.1 32-36 g/dl Platelet Count 188 130-400 K/uL Mean Platelet Volume 9.7 7.4-10.4 fL Neutrophils (%) (Auto) 66.7 % Lymphocytes (%) (Auto) 19.8 % Monocytes (%) (Auto) 9.3 % Eosinophils (%) (Auto) 3.7 % Basophils (%) (Auto) 0.5 % Neutrophils # (Auto) 3.64 1.4-6.5 K/uL Lymphocytes # (Auto) 1.08 1.2-3.4 K/uL Monocytes # (Auto) 0.51 0.11-0.59 K/uL Eosinophils # (Auto) 0.20 0-0.5 K/uL Basophils # (Auto) 0.03 0-0.2 K/uL RDW Standard Deviation 41.1 36.4-46.3 fL RDW Coefficient of Variation 12.2 11.5-14.5 % Immature Granulocyte % (Auto) 0.0 % Immature Granulocyte # (Auto) 0.00 0.00-0.02 K/uL Prothrombin Time 9.6 9.0-12.0 SECONDS Prothromb Time International Ratio 0.9 0.9-1.1 Activated Partial Thromboplast Time 25.2 21.0-31.0 SECONDS Partial Thromboplastin Ratio 1.0 Sodium Level 141 136-145 mmol/L Potassium Level 3.6 3.5-5.1 mmol/L Chloride Level 107 98-107 mmol/L Carbon Dioxide Level 26 21-32 mmol/L Anion Gap 8.0 18.0 16-25 mmol/L Blood Urea Nitrogen 16 7-18 mg/dl Creatinine 1.04 0.60-1.40 mg/dl Est Creatinine Clear Calc Drug Dose 60.0 ml/min Estimated GFR () 82.7 Estimated GFR (Non- 71.4 BUN/Creatinine Ratio 15.1 10-20 Random Glucose 120 70-99 mg/dl Calcium Level 8.7 8.5-10.1 mg/dl Magnesium Level 2.0 1.8-2.4 mg/dl Total Bilirubin 0.5 0.2-1 mg/dl Direct Bilirubin 0.2 0-0.2 mg/dl Aspartate Amino Transf (AST/SGOT) 22 15-37 U/L Alanine Aminotransferase (ALT/SGPT) 23 12-78 U/L Alkaline Phosphatase 66 45-117 U/L Troponin I 0.022 0-0.045 ng/ml Total Protein 7.0 6.4-8.2 gm/dl Albumin 3.5 3.4-5.0 gm/dl Lipase 77 73-393 U/L Thyroid Stimulating Hormone (TSH) 6.350 0.300-4.500 uIu/ml Free Thyroxine 0.93 0.80-1.60 ng/dl Bedside Hemoglobin 13.9 14.0-18.0 g/dl Bedside Hematocrit 41 42-52 % Bedside Sodium 142 135-144 mEq/L Bedside Potassium 3.8 3.3-5.0 mEq/L Bedside Chloride 102 101-112 mEq/L Bedside Total CO2 27 24-31 mEq/l Bedside Blood Urea Nitrogen 18 7-18 mg/dl Bedside Creatinine 1.0 0.6-1.3 mg/dl Bedside Glucose (other) 123 70-99 mg/dl Bedside Ionized Calcium (Blaine) 1.08 1.12-1.32 mmol/l Bedside Troponin I 0.030 0-0.045 ng/ml Diagnostic Radiology CHEST ONE VIEW PORTABLE CLINICAL HISTORY: Chest pain. COMPARISON STUDY: Chest radiograph April 13, 2017 per FINDINGS: Lung volumes are normal. No pneumothorax or pleural effusion is noted. No consolidation is evident. There is no evidence for pulmonary edema. Mild cardiomegaly is noted. There is mild S-shaped curvature of the thoracolumbar spine. IMPRESSION: No acute cardiopulmonary findings. No change in appearance of the chest. EKG Initial: Atrial fibrillation with rapid ventricular response with premature ventricular or aberrantly conducted complexes Subsequent: Normal sinus rhythm Impression Assessment and Plan This is a 72 year old male with a past medical history of multiple arrhythmias including atrial fibrillation/flutter 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 Wide Complex Tachyarrhythmia - now resolved with procainamide bolus/drip - will admit to ICU due to the drip - also on a heparin drip - was once on Xarelto, stopped after previous ablations - cardiology consulted - giving 20meq of KCl to get K > 4.0 HLD - continue statin BPH - continue home medications DVT ppx - IV heparin FULL CODE Resuscitation Status VTE Prophylaxis Will order VTE Prophylaxis: Yes
[2017-12-03] MEDS ORDERED: FINASTERIDE 5 MG TAB PO SCH (09:00)
[2017-12-03] MEDS ORDERED: ASPIRIN 81 MG ECTAB PO SCH (09:00)
--- NOTE | 2017-12-03 10:03 | Critical Care Consultation ---
Critical Care Consultation Date of Consultation: Dec 03, 2017. Attending Physician: Ramos Peña DO Reason for Consultation: Wide complex tachycardia History of Present Illness Patient is a 72-year-old male who presents to [facility] an emergency department after elevated blood pressure reading that could not read his pulse rate. He has a previous history of Burroughs Parkinson White syndrome and recently underwent a arrhythmia ablation. In the emergency department patient was found to have a wide complex tachycardia and was started on a procainamide bolus and continued with an infusion which resolved the rhythm is currently in normal sinus. Patient denied chest pain during the events and denies chest pain and exertional dyspnea at this time he feels that he is in his normal state of health. Past Medical/Surgical History Long-term anticoagulation [id number]-Kydff Atrial fibrillation Benign prostatic hypertrophy Dyslipidemia Family History FH: cancer MOTHER Social History Smoking Status: Never Smoker Marital Status: Housing Status: lives with family Allergies Coded Allergies: Penicillins (Verified Allergy, Unknown, `, 12/03/17) Home Medications Scheduled Ascorbic Acid (Vitamin C), 1 TAB PO DAILY Aspirin (Aspirin Ec), 81 MG PO DAILY Cholecalciferol (Vitamin D3), 1,000 UNITS PO DAILY Finasteride (Proscar), 5 MG PO DAILY Simvastatin (Zocor), 20 MG PO QPM Terazosin (Hytrin), 5 MG PO HS Vitamin B Complex (Vitamin B Complex), 1 TAB PO DAILY Current Inpatient Medications Current Inpatient Medications Medications (Trade) Dose Ordered Sig/Koki Route Start Time Stop Time Status Last Admin Dose Admin Procainamide HCl 1000 mg/Dextrose 252 ml @ 15 mls/hr [id number] IV 12/03/17 06:45 01/02/18 06:44 12/03/17 06:55 15 MLS/HR Acetaminophen (Tylenol Tab) 650 mg Q4H PRN PO 12/03/17 08:00 01/02/18 07:59 Miscellaneous Information (Icu Protocol For Hyperglycemia) 1 ea PRN PRN N/A 12/03/17 08:00 12/05/17 07:59 Aspirin (Ecotrin Tab) 81 mg DAILY PO 12/03/17 09:00 01/02/18 08:59 Future hold Finasteride (Proscar Tab) 5 mg DAILY PO 12/03/17 09:00 01/02/18 08:59 Simvastatin (Zocor Tab) 20 mg QPM PO 12/03/17 21:00 01/02/18 20:59 Terazosin HCl (Hytrin Cap) 5 mg HS PO 12/03/17 21:00 01/02/18 20:59 Heparin Sodium/ Dextrose 1 ea Q15M N/A 12/03/17 09:00 12/03/17 12:00 Review of Systems A 10 point review of systems has been obtained and is otherwise negative. Constitutional: No fever, No chills, No sweats, No weight loss Respiratory: No cough, No sputum, No wheezing Cardiovascular: No chest pain, No orthopnea, No PND Genitourinary - Male: No hematuria Physical Exam Date Time Temp Pulse Resp B/P (MAP) Pulse Ox O2 Delivery O2 Flow Rate FiO2 12/03/17 09:00 53 20 117/65 (82) 98 Room Air 12/03/17 08:30 36.4 56 18 108/68 (81) 97 Room Air 12/03/17 08:30 98 Room Air 12/03/17 08:15 56 22 108/68 96 Room Air 12/03/17 08:06 56 13 109/66 97 Room Air 12/03/17 08:04 96 Room Air 12/03/17 08:03 55 15 113/66 97 Room Air 12/03/17 07:56 58 16 111/65 96 Room Air 12/03/17 07:51 58 17 110/65 98 Room Air 12/03/17 07:46 60 17 110/68 97 Room Air 12/03/17 07:40 57 14 112/72 97 12/03/17 07:35 60 19 118/70 97 Room Air 12/03/17 07:30 57 17 113/66 97 Room Air 12/03/17 07:26 70 23 148/71 96 Room Air 12/03/17 07:20 65 14 115/69 96 Room Air 12/03/17 07:19 97 Room Air 12/03/17 07:16 62 14 112/69 97 Room Air 12/03/17 07:11 68 17 116/71 97 Room Air 12/03/17 07:05 68 20 109/68 97 Room Air 12/03/17 07:02 68 19 109/66 98 Room Air 12/03/17 07:00 68 14 113/72 98 Room Air 12/03/17 06:55 72 17 110/71 97 Room Air 12/03/17 06:50 65 14 102/73 95 Room Air 12/03/17 06:49 62 12 115/71 95 Room Air 12/03/17 06:47 109 14 93/75 95 Room Air 12/03/17 06:47 66 12/03/17 06:46 99 21 125/60 96 Room Air 12/03/17 06:46 94 12/03/17 06:44 208 19 117/77 96 Room Air 12/03/17 06:27 96 Room Air 12/03/17 06:26 36.5 193 18 112/ 98 Room Air 12/03/17 06:24 233 General: Alert. nontoxic. Skin: Warm, dry, Head: Atraumatic Ears, nose, mouth and throat: airway patent Cardiovascular: Normal peripheral perfusion, normal sinus rhythm rate of 64 on bedside monitor Respiratory: no respiratory distress Gastrointestinal: Non distended Musculoskeletal: No deformity Psychiatry: Normal affect pleasant Laboratory Results Last 24 Hours Test 12/03/17 06:34 12/03/17 06:37 12/03/17 06:38 White Blood Count 5.46 K/uL Red Blood Count 4.55 M/uL Hemoglobin 14.4 g/dL Hematocrit 42.2 % Mean Corpuscular Volume 92.7 fL Mean Corpuscular Hemoglobin 31.6 pg Mean Corpuscular Hemoglobin Concent 34.1 g/dl Platelet Count 188 K/uL Mean Platelet Volume 9.7 fL Neutrophils (%) (Auto) 66.7 % Lymphocytes (%) (Auto) 19.8 % Monocytes (%) (Auto) 9.3 % Eosinophils (%) (Auto) 3.7 % Basophils (%) (Auto) 0.5 % Neutrophils # (Auto) 3.64 K/uL Lymphocytes # (Auto) 1.08 K/uL Monocytes # (Auto) 0.51 K/uL Eosinophils # (Auto) 0.20 K/uL Basophils # (Auto) 0.03 K/uL RDW Standard Deviation 41.1 fL RDW Coefficient of Variation 12.2 % Immature Granulocyte % (Auto) 0.0 % Immature Granulocyte # (Auto) 0.00 K/uL Prothrombin Time 9.6 SECONDS Prothromb Time International Ratio 0.9 Activated Partial Thromboplast Time 25.2 SECONDS Partial Thromboplastin Ratio 1.0 Sodium Level 141 mmol/L Potassium Level 3.6 mmol/L Chloride Level 107 mmol/L Carbon Dioxide Level 26 mmol/L Anion Gap 8.0 mmol/L 18.0 mmol/L Blood Urea Nitrogen 16 mg/dl Creatinine 1.04 mg/dl Est Creatinine Clear Calc Drug Dose 60.0 ml/min Estimated GFR () 82.7 Estimated GFR (Non- 71.4 BUN/Creatinine Ratio 15.1 Random Glucose 120 mg/dl Calcium Level 8.7 mg/dl Magnesium Level 2.0 mg/dl Total Bilirubin 0.5 mg/dl Direct Bilirubin 0.2 mg/dl Aspartate Amino Transf (AST/SGOT) 22 U/L Alanine Aminotransferase (ALT/SGPT) 23 U/L Alkaline Phosphatase 66 U/L Troponin I 0.022 ng/ml Total Protein 7.0 gm/dl Albumin 3.5 gm/dl Lipase 77 U/L Thyroid Stimulating Hormone (TSH) 6.350 uIu/ml Free Thyroxine 0.93 ng/dl Bedside Hemoglobin 13.9 g/dl Bedside Hematocrit 41 % Bedside Sodium 142 mEq/L Bedside Potassium 3.8 mEq/L Bedside Chloride 102 mEq/L Bedside Total CO2 27 mEq/l Bedside Blood Urea Nitrogen 18 mg/dl Bedside Creatinine 1.0 mg/dl Bedside Glucose (other) 123 mg/dl Bedside Ionized Calcium (Blaine) 1.08 mmol/l Bedside Troponin I 0.030 ng/ml Diagnostic Results Reviewed the chest x-ray December 03, 2017 I reviewed the EKGs obtained in the the emergency department Assessment & Plan (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 Richardson of cardiology will likely require transfer to [facility]let straightener in [place] for further evaluation and possible additional ablation -Trend troponins (3) BPH (benign prostatic hyperplasia) Continue home medication (4) Dyslipidemia Continue home statin (5) Elevated TSH Free T4 within normal limits -Follow-up primary care provider
[2017-12-03] MEDS ORDERED: HEPARIN 25,000 UNIT/500ML D5W 500 ML IV SCH (10:30)
--- NOTE | 2017-12-03 11:00 | Discharge Instructions ---
Discharge Instructions Date of Service Dec 03, 2017. Admission Reason for Admission: Wide Complex Tachycardia Discharge Discharge Diagnosis / Problem: Atrial Flutter Discharge Goals Goal(s): Decrease discomfort, Improve function, Diagnostic testing, Therapeutic intervention Activity Recommendations Activity Limitations: resume your previous activity . Instructions / Follow-Up Instructions / Follow-Up Patient to be transferred to [facility] for further care Continue Procainamide drip and Heparin drip Current Hospital Diet Patient's current hospital diet: Discharge Diet Recommended Diet: N/A Pending Studies Studies pending at discharge: no Medical Emergencies . Who to Call and When: Medical Emergencies: If at any time you feel your situation is an emergency, please call 911 immediately. . Non-Emergent Contact Non-Emergency issues call your: Primary Care Provider . . "Provider Documentation" section prepared by Ramos Peña. .
--- NOTE | 2017-12-03 11:01 | Discharge Summary ---
Discharge Summary Date of Service Dec 03, 2017. Discharge Summary Admission Date: Dec 03, 2017 at 08:01 Discharge Date: Dec 03, 2017 Discharge Disposition: Acute care facility Principal Diagnosis: Atrial Flutter with possible bypass tract Medication Reconciliation Continued Medications: Ascorbic Acid (Vitamin C) 1,000 Mg Tab 1 TAB PO DAILY Aspirin (Aspirin Ec) 81 Mg Tab 81 MG PO DAILY Cholecalciferol (Vitamin D3) 1,000 Unit Tab 1000 UNITS PO DAILY for 90 Days, TAB 3 Refills Finasteride (Proscar) 5 Mg Tab 5 MG PO DAILY, TAB Simvastatin (Zocor) 20 Mg Tab 20 MG PO QPM, TAB Terazosin (Hytrin) 5 Mg Cap 5 MG PO HS, CAP Vitamin B Complex (Vitamin B Complex) 1 Tab Tab 1 TAB PO DAILY Admission Information HPI (per Admitting provider): This is a 72 year old male with a past medical history of multiple arrhythmias including atrial fibrillation/flutter 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 Patient had been seeing EP specialists and had an ablation for his atrial flutter and his WPW - and subsequently taken off of Xarelto and any other cardiac medications. He has been doing well since April 2017 after the ablations. States he was in his usual state of health until this morning, felt abdominal cramping and a "funny feeling" in his chest, he checked his pulse at home and it was in the 200s. Presented to the ED, found to have a wide complex tachyarrhythmia. Given Procainamide bolus/drip and has since converted to a sinus rhythm. Currently denies any symptoms. Physical Exam (per Admitting): General Appearance: no apparent distress Head: normocephalic, atraumatic Eyes: normal inspection ENT: hearing grossly normal Neck: supple Respiratory/Chest: chest non-tender, lungs clear, normal breath sounds, no respiratory distress, no accessory muscle use Cardiovascular: regular rate, rhythm, no edema, no gallop, no JVD, no murmur , normal peripheral pulses Abdomen/GI: normal bowel sounds, non tender, soft Extremities/Musculoskelatal: normal inspection, no calf tenderness, normal capillary refill, no pedal edema, normal range of motion Neurologic/Psych: hand marker II-XII nml as tested, no motor/sensory deficits, alert , normal mood/affect, oriented x 3 Skin: normal color, warm/dry, no rash Lymphatic: no adenopathy Hospital Course This is a 72 year old male with a past medical history of multiple arrhythmias including atrial fibrillation/flutter 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 Wide Complex Tachyarrhythmia - now resolved with procainamide bolus/drip - will admit to ICU due to the drip - also on a heparin drip - was once on Xarelto, stopped after previous ablations - cardiology consulted - giving 20meq of KCl to get K > 4.0 HLD - continue statin BPH - continue home medications DVT ppx - IV heparin FULL CODE Total time spent on discharge = 45 minutes This includes examination of the patient, discharge planning, medication reconciliation, and communication with other providers. Discharge Instructions Patient to be transferred [place] [facility] [place] Continue Procainamide drip and Heparin drip
[2017-12-03] MEDS: POTASSIUM CHLORIDE 10 MEQ TABCR PO SCH ×2 (12:08→17:27)
[2017-12-03 13:24] LABS: PTT PATIENT 69.9 SECONDS (21.0-31.0)
--- NOTE | 2017-12-03 20:26 | CARDIOLOGY CONSULTATION ---
DATE OF CONSULTATION: 12/03/2017 CONSULTATION REQUESTED BY: Dr. Givens. REASON FOR CONSULTATION: Wide complex tachycardia. HISTORY OF PRESENT ILLNESS: Mr. Winter is a very pleasant 72-year-old gentleman who normally follows with me as an outpatient as well as Dr. Gomez. He presented to [facility] early in the a.m. of 12/03/2017 with a complaint of palpitations. The patient states that he woke up this morning after being in his normal state of health and felt a slight skipping sensation in his chest. He felt as though his heart would beat fast for a second or two and then skip a beat, but other than that, he felt well. He denied experiencing any associated lightheadedness, dizziness, or syncope. He also denied experiencing any chest discomfort. When he noticed this, he let his know that he should go to the Emergency Department, but then took the dog for a walk and felt well. Upon arrival to the Emergency Department, he was found to be in wide complex tachycardia, and he was astutely given a procainamide bolus with conversion to normal sinus rhythm. I discussed the case with Dr. Givens at that time and agreed with the treatment plan, and he was admitted to the intensive care unit. After admission, the patient remained in normal sinus rhythm and feeling otherwise well. Of note, the patient had a previous similar episode in late 03/2017 where he was found to have atrial flutter with conduction down to bypass tract, and he was ultimately transferred to [place] where he underwent bypass tract ablation along with atrial flutter ablation. He had followed up with Dr. Gomez since then, and outpatient monitoring had been completely unremarkable, and he was off all antiarrhythmics. PAST SURGICAL HISTORY: 1. Electrophysiology study with ablation of bypass tract and atrial flutter. 2. Colonoscopy. 3. Hernia repair. PAST MEDICAL HISTORY: 1. Paroxysmal atrial fibrillation. 2. Dnpxh-Umdqpzqzq-Ynjmr syndrome. 3. Dyslipidemia. 4. Grade 2 diastolic dysfunction, with normal LV systolic function. FAMILY HISTORY: Noncontributory. SOCIAL HISTORY: Denies any alcohol, tobacco, or recreational drug use. He is . He lives at home with his . He is very active around the house. REVIEW OF SYSTEMS: As per HPI, all other review of systems reviewed and negative at this time. ALLERGIES: PENICILLIN. OUTPATIENT MEDICATIONS: 1. Terazosin 5 mg daily. 2. Proscar daily. 3. Simvastatin 20 mg daily. PHYSICAL EXAMINATION: VITAL SIGNS: Temperature 36.4, pulse 53, respiratory rate 12, blood pressure 117/65. GENERAL: Awake, alert, oriented x3, in no acute distress. HEENT: Normocephalic and atraumatic. Pupils equal, round, and reactive to light and accommodation. Extraocular muscles intact. Anicteric sclerae. Moist mucous membranes. NECK: No JVD, no bruit. CARDIOVASCULAR: Regular. Positive S4, normal S1 and S2, no S3. No murmurs, rubs, or gallops. PULMONARY: Clear to auscultation bilaterally. No rales, rhonchi, or wheezing. ABDOMEN: Bowel sounds x4, soft. No rebound, guarding, tenderness. No organomegaly. EXTREMITIES: No clubbing, cyanosis, or edema. +2 pedal pulses bilaterally. SKIN: Warm and dry. TEST RESULTS: Initial 12-lead EKG performed in the Emergency Department and independently reviewed at this time shows wide complex tachycardia at 220 beats a minute, most likely atrial flutter, with conduction down bypass tract. Repeat EKG shows similar rhythm at 208 beats per minute. Resultant EKG shows sinus bradycardia. IMPRESSION: 1. Wide complex tachycardia, likely atrial flutter, with conduction down bypass tract. 2. History of Pmngv-Jzsazclsu-Afwjv syndrome, status post bypass tract ablation. 3. Paroxysmal atrial fibrillation and flutter, status post flutter ablation. RECOMMENDATIONS: It is my pleasure to see Mr. Winter in consultation today. Given the patient's complex cardiac history, I did discuss this case with Dr. Gomez, who is the on-call campaign director and knows the patient well, and it was agreed that he would accept the patient for transfer to [facility] in [place] for likely EP study in the a.m. In the meantime, he will be transported, maintained on heparin, and a procainamide drip is already started, and appropriate paperwork has been filled out.
[2017-12-03] MEDS ORDERED: SIMVASTATIN 20 MG TAB PO SCH (21:00)
== END 2017-12-03 18:49 | disposition short-term general hospital (02) | DRG 310 ==
LOC: C.EDB 06:18 → C.MSICU 08:01 → ENRESERV 08:07
PROVIDERS: ADMIT Family Medicine; ATTEND Family Medicine
DX: I48.92 Unspecified atrial flutter (principal); E78.5 Hyperlipidemia, unspecified; N40.0 Benign prostatic hyperplasia without lower urinary tract symptoms; R94.6 Abnormal results of thyroid function studies; Z86.79 Personal history of other diseases of the circulatory system; Z98.890 Other specified postprocedural states; Z79.82 Long term (current) use of aspirin; Z79.899 Other long term (current) drug therapy; Z88.0 Allergy status to penicillin